=== PATIENT | female | born 1950 | race Two or more races ===

== ENCOUNTER 2023-03-10 20:03 | Inpatient (IN) | payer MEDICARE, MEDICAID, SELFPAY ==
--- NOTE | ~2023-03-10 | CT_ITS ---
EXAMINATION: CT CHEST, ABDOMEN AND PELVIS WITHOUT CONTRAST CT RIGHT SHOULDER WITHOUT CONTRAST CLINICAL INFORMATION: Shortness of breath, cough, febrile, question C. difficile colitis, right shoulder pain with history of osteo COMPARISON: None TECHNIQUE: Multidetector volumetric imaging was performed from the thoracic inlet through the pubic symphysis. Sagittal and coronal reformatted images were obtained on the technologist's workstation. Axial MIP volume rendering provided. Additional dedicated CT imaging of the right shoulder was performed with creation of coronal and sagittal reformatted images. This CT examination was performed using dose optimization techniques as appropriate, variously including the following: *Automated exposure control *Adjustment of mA and/or kV according to patient size (this includes techniques or standardized protocols for targeted exams where dose is matched to indication/reason for exam; i.e. extremities or head) *Use of iterative reconstruction technique DLP: 2184 mGy-cm FINDINGS: CHEST: Lungs: There are multifocal patchy regions of groundglass opacity bilaterally. There is complete atelectasis of the left lower lobe due to adjacent pleural effusion. Dependent atelectasis is present in the right lower lobe. Mediastinum: Visualized thyroid gland is grossly unremarkable. No appreciable mediastinal adenopathy on this noncontrast exam. Cardiac size is within normal limits; no pericardial effusion. Right IJ catheter tip lies in the region of the right atrium. Coronary Artery Calcification: None visualized on this study. Pleura: Moderate left and exgcu-xs-zaxmqkah right pleural effusions. No pneumothorax. Chest Wall/Axilla: Unremarkable. ABDOMEN/PELVIS: Liver, Gallbladder, Biliary Tree: The liver has a nodular contour suspicious for cirrhosis. No appreciable focal hepatic lesion or ductal dilatation on this noncontrast exam. Gallbladder is not visualized. Pancreas: Grossly unremarkable. Spleen: Borderline enlarged. Adrenal Glands: Grossly unremarkable. Kidneys and Ureters: No hydronephrosis or obstructing calculus identified. Bladder: Collapsed and not adequately evaluated. Gastrointestinal Tract: No evidence of bowel obstruction. No significant bowel wall thickening is seen. Small amount of free fluid is present. No free air is seen. Abdominal Wall: Anasarca is noted. Lymphovascular Structures: There are lobulated densities in the left upper quadrant which could reflect dilated vessels, though assessment is limited on this noncontrast examination, and the possibility of adenopathy or masses is difficult to exclude. Diffuse stranding noted throughout the mesentery. Pelvic Viscera: Patient appears to be status post hysterectomy. OSSEOUS STRUCTURES INCLUDING RIGHT SHOULDER: Degenerative changes are noted in the spine. Bilateral L5 pars defects are noted. The glenohumeral alignment at the right shoulder is anatomic. The acromioclavicular joint appears intact with moderate degenerative change. No findings to suggest osteomyelitis. CT/CT abdomen pelvis wo IV con IMPRESSION: CHEST: 1. Multifocal patchy regions of groundglass opacity bilaterally, suspicious for pneumonia in the proper clinical setting. 2. Moderate left and lcifz-cx-iprydwds right pleural effusions. Complete compressive atelectasis of the left lower lobe. 3. No acute findings identified in the right shoulder. Degenerative change of the acromioclavicular joint. ABDOMEN/PELVIS: 1. Nodular hepatic contour suspicious for cirrhosis. Borderline enlarged spleen. 2. Lobulated densities in the left upper quadrant could reflect dilated vessels/varices in the setting of portal hypertension, though assessment is limited on this noncontrast exam and the possibility of masses is difficult to exclude. A contrast-enhanced CT would be helpful for better evaluation. 3. Small amount of free fluid along with mesenteric stranding/edema. Anasarca. 4. No convincing evidence for colitis.
--- NOTE | ~2023-03-10 | CT_ITS ---
EXAMINATION: CT CHEST, ABDOMEN AND PELVIS WITHOUT CONTRAST CT RIGHT SHOULDER WITHOUT CONTRAST CLINICAL INFORMATION: Shortness of breath, cough, febrile, question C. difficile colitis, right shoulder pain with history of osteo COMPARISON: None TECHNIQUE: Multidetector volumetric imaging was performed from the thoracic inlet through the pubic symphysis. Sagittal and coronal reformatted images were obtained on the technologist's workstation. Axial MIP volume rendering provided. Additional dedicated CT imaging of the right shoulder was performed with creation of coronal and sagittal reformatted images. This CT examination was performed using dose optimization techniques as appropriate, variously including the following: *Automated exposure control *Adjustment of mA and/or kV according to patient size (this includes techniques or standardized protocols for targeted exams where dose is matched to indication/reason for exam; i.e. extremities or head) *Use of iterative reconstruction technique DLP: 2184 mGy-cm FINDINGS: CHEST: Lungs: There are multifocal patchy regions of groundglass opacity bilaterally. There is complete atelectasis of the left lower lobe due to adjacent pleural effusion. Dependent atelectasis is present in the right lower lobe. Mediastinum: Visualized thyroid gland is grossly unremarkable. No appreciable mediastinal adenopathy on this noncontrast exam. Cardiac size is within normal limits; no pericardial effusion. Right IJ catheter tip lies in the region of the right atrium. Coronary Artery Calcification: None visualized on this study. Pleura: Moderate left and wmnwb-zs-krvxmxfp right pleural effusions. No pneumothorax. Chest Wall/Axilla: Unremarkable. ABDOMEN/PELVIS: Liver, Gallbladder, Biliary Tree: The liver has a nodular contour suspicious for cirrhosis. No appreciable focal hepatic lesion or ductal dilatation on this noncontrast exam. Gallbladder is not visualized. Pancreas: Grossly unremarkable. Spleen: Borderline enlarged. Adrenal Glands: Grossly unremarkable. Kidneys and Ureters: No hydronephrosis or obstructing calculus identified. Bladder: Collapsed and not adequately evaluated. Gastrointestinal Tract: No evidence of bowel obstruction. No significant bowel wall thickening is seen. Small amount of free fluid is present. No free air is seen. Abdominal Wall: Anasarca is noted. Lymphovascular Structures: There are lobulated densities in the left upper quadrant which could reflect dilated vessels, though assessment is limited on this noncontrast examination, and the possibility of adenopathy or masses is difficult to exclude. Diffuse stranding noted throughout the mesentery. Pelvic Viscera: Patient appears to be status post hysterectomy. OSSEOUS STRUCTURES INCLUDING RIGHT SHOULDER: Degenerative changes are noted in the spine. Bilateral L5 pars defects are noted. The glenohumeral alignment at the right shoulder is anatomic. The acromioclavicular joint appears intact with moderate degenerative change. No findings to suggest osteomyelitis. CT/CT chest wo IV con IMPRESSION: CHEST: 1. Multifocal patchy regions of groundglass opacity bilaterally, suspicious for pneumonia in the proper clinical setting. 2. Moderate left and rxirq-ju-ytoawwff right pleural effusions. Complete compressive atelectasis of the left lower lobe. 3. No acute findings identified in the right shoulder. Degenerative change of the acromioclavicular joint. ABDOMEN/PELVIS: 1. Nodular hepatic contour suspicious for cirrhosis. Borderline enlarged spleen. 2. Lobulated densities in the left upper quadrant could reflect dilated vessels/varices in the setting of portal hypertension, though assessment is limited on this noncontrast exam and the possibility of masses is difficult to exclude. A contrast-enhanced CT would be helpful for better evaluation. 3. Small amount of free fluid along with mesenteric stranding/edema. Anasarca. 4. No convincing evidence for colitis.
--- NOTE | ~2023-03-10 | CT_ITS ---
EXAMINATION: CT CHEST, ABDOMEN AND PELVIS WITHOUT CONTRAST CT RIGHT SHOULDER WITHOUT CONTRAST CLINICAL INFORMATION: Shortness of breath, cough, febrile, question C. difficile colitis, right shoulder pain with history of osteo COMPARISON: None TECHNIQUE: Multidetector volumetric imaging was performed from the thoracic inlet through the pubic symphysis. Sagittal and coronal reformatted images were obtained on the technologist's workstation. Axial MIP volume rendering provided. Additional dedicated CT imaging of the right shoulder was performed with creation of coronal and sagittal reformatted images. This CT examination was performed using dose optimization techniques as appropriate, variously including the following: *Automated exposure control *Adjustment of mA and/or kV according to patient size (this includes techniques or standardized protocols for targeted exams where dose is matched to indication/reason for exam; i.e. extremities or head) *Use of iterative reconstruction technique DLP: 2184 mGy-cm FINDINGS: CHEST: Lungs: There are multifocal patchy regions of groundglass opacity bilaterally. There is complete atelectasis of the left lower lobe due to adjacent pleural effusion. Dependent atelectasis is present in the right lower lobe. Mediastinum: Visualized thyroid gland is grossly unremarkable. No appreciable mediastinal adenopathy on this noncontrast exam. Cardiac size is within normal limits; no pericardial effusion. Right IJ catheter tip lies in the region of the right atrium. Coronary Artery Calcification: None visualized on this study. Pleura: Moderate left and iscmo-uy-qmvhvixm right pleural effusions. No pneumothorax. Chest Wall/Axilla: Unremarkable. ABDOMEN/PELVIS: Liver, Gallbladder, Biliary Tree: The liver has a nodular contour suspicious for cirrhosis. No appreciable focal hepatic lesion or ductal dilatation on this noncontrast exam. Gallbladder is not visualized. Pancreas: Grossly unremarkable. Spleen: Borderline enlarged. Adrenal Glands: Grossly unremarkable. Kidneys and Ureters: No hydronephrosis or obstructing calculus identified. Bladder: Collapsed and not adequately evaluated. Gastrointestinal Tract: No evidence of bowel obstruction. No significant bowel wall thickening is seen. Small amount of free fluid is present. No free air is seen. Abdominal Wall: Anasarca is noted. Lymphovascular Structures: There are lobulated densities in the left upper quadrant which could reflect dilated vessels, though assessment is limited on this noncontrast examination, and the possibility of adenopathy or masses is difficult to exclude. Diffuse stranding noted throughout the mesentery. Pelvic Viscera: Patient appears to be status post hysterectomy. OSSEOUS STRUCTURES INCLUDING RIGHT SHOULDER: Degenerative changes are noted in the spine. Bilateral L5 pars defects are noted. The glenohumeral alignment at the right shoulder is anatomic. The acromioclavicular joint appears intact with moderate degenerative change. No findings to suggest osteomyelitis. CT/CT shoulder RT wo IV con IMPRESSION: CHEST: 1. Multifocal patchy regions of groundglass opacity bilaterally, suspicious for pneumonia in the proper clinical setting. 2. Moderate left and kgrcu-yp-pffheujj right pleural effusions. Complete compressive atelectasis of the left lower lobe. 3. No acute findings identified in the right shoulder. Degenerative change of the acromioclavicular joint. ABDOMEN/PELVIS: 1. Nodular hepatic contour suspicious for cirrhosis. Borderline enlarged spleen. 2. Lobulated densities in the left upper quadrant could reflect dilated vessels/varices in the setting of portal hypertension, though assessment is limited on this noncontrast exam and the possibility of masses is difficult to exclude. A contrast-enhanced CT would be helpful for better evaluation. 3. Small amount of free fluid along with mesenteric stranding/edema. Anasarca. 4. No convincing evidence for colitis.
[2023-03-10 20:07] VITALS: BP 142/68; PULSE 92; O2SAT 92
[2023-03-10 20:13] VITALS: BP 98/42; PULSE 85; RESP 14; TEMP 36.7; O2SAT 97; BMI 31.5
[2023-03-10 20:52] LABS: Basophils Absolute Auto 0.1 X10*3/uL (0.0-0.2); Basophils Percent Auto 0.6 % (0-2); Imm Gran Abs Auto 0.03 X10*3/uL (0.00-0.03); Imm Gran Pct Auto 0.3 % (0.0-0.4); MANUAL DIFF FLAG SCAN; PLT CLUMP 1; Red Blood Count 2.44 X10*6/uL (4.20-5.50); SCAN SMEAR FLAG 1
[2023-03-10] MEDS: 0.9 % Sodium Chloride 1,000 ML 999 ML IV (20:53)
[2023-03-10 20:54] LABS: Eosinophils Absolute Auto 0.2 X10*3/uL (0.0-0.4); Eosinophils Percent Auto 1.9 % (0-4); Hematocrit 26.2 % (37.0-47.0); Hemoglobin 8.7 g/dl (12.0-16.0); Lymphocytes Absolute Auto 1.3 X10*3/uL (1.2-4.9); Lymphocytes Percent Auto 15.4 % (20-40); Mean Corpuscular HGB Conc 33.2 g/dl (31.0-35.0); Mean Corpuscular Hemoglobin 35.7 pg (27.0-33.0); Mean Corpuscular Volume 107.4 fL (80.0-98.0); Mean Platelet Volume 12.8 fL (9.4-12.3); Monocytes Absolute Auto 0.7 X10*3/uL (0.1-1.2); Monocytes Percent Auto 7.8 % (2-11); Neutrophils Absolute Auto 6.4 x10*3/uL (2.0-8.3); Red Cell Distribution Width 15.3 % (11.0-16.0)
[2023-03-10 20:56] LABS: PLT ABN DIST 1
[2023-03-10 20:59] LABS: Platelet Count 17 X10*3/uL (160-400)
[2023-03-10 21:00] LABS: Lactic Acid 1.5 mmol/L (0.5-2.0)
[2023-03-10 21:04] LABS: INTERNATIONAL NORM RATIO 1.8 (0.9-1.1); Prothrombin Time 21.4 SEC (11.1-13.3)
[2023-03-10 21:05] LABS: Alanine Aminotransferase 5 U/L (0-31); Albumin Level 2.1 g/dL (3.5-5.0); Alkaline Phosphatase 335 U/L (39-117); Anion Gap 9 (12-20); Aspartate Amino Transferase 72 U/L (5-31); Bilirubin Total 3.6 mg/dL (0.0-1.0); Blood Urea Nitrogen 14 mg/dL (9-16); Calcium 8.4 mg/dL (8.4-10.2); Carbon Dioxide 30 mmol/L (22-29); Chloride 100 mmol/L (96-108); Creatinine Clr Calc Pharmacy 20.1; Estimated Glomerular Filt Rate 18; Glucose Random 101 mg/dL (60-115); Sodium 135 mmol/L (135-145); Total Protein 5.7 g/dL (6.5-8.0)
[2023-03-10 21:15] LABS: SLIDE REVIEW VERIFIED
--- NOTE | 2023-03-10 21:32 | PC.NURSE ---
Pt DAJUAN, from [facility], staff reporting fever of 100.6, given tylenol [employer]IST. AOx3,Pt reports no pain, denies SOB only with exertion a few days ago. Per EMS, she is C-diff positive. Pt reports no BM since yesterday. IV line placed bloodwork collected and sent to lab. Pt afebrile, 3+ pitting edema to BLE, has a dialysis cath noted to right upper chest, pt reports last dialysis yesterday.
[2023-03-10 21:39] LABS: B Type Natriuretic Peptide 560 pg/mL (<100)
--- NOTE | 2023-03-10 21:46 | ED.GENADULT ---
HPI - General Adult General Chief complaint: General Medical Stated complaint: Fever x1hr Time Seen by Provider: 03/10/23 20:29 Source: patient, EMS and watch electrician Mode of arrival: EMS History of Present Illness HPI narrative: 72-year-old female was brought in to this emergency room from [facility] who had concerns regarding a reported fever of 100.6 for which they gave Tylenol and patient arrives here afebrile. Patient denies fevers or chills and states that her abdomen has not bothered her for a few days, last bowel movement was last night and she has recently been C diff positive. Related Data Allergies Allergy/AdvReac Type Severity Reaction Status Date / Time Unable to Assess Allergy Verified 03/10/23 20:37 Review of Systems Review of Systems: Pertinent positives and negatives as stated in HPI [facility] Past Medical History Source: nursing notes reviewed Social History Social History Alcohol intake: never Smoked in Last 30 Days: No Use of substances other than those prescribed or required for medical reasons: No Advance Directives: No Advance Directives Information Provided: Yes Physical Exam ED Vital Signs: Vital Signs - 24 hr 03/10/23 20:13 03/10/23 22:30 Temperature 98.1 F 98.9 F Pulse Rate 85 74 Respiratory Rate 14 20 Blood Pressure 98/42 L 122/57 L Pulse Oximetry 97 98 Oxygen Delivery Method Room Air Room Air BMI result Body Mass Index 31.5 VITAL SIGNS: Reviewed. GENERAL: Chronically ill, in no acute distress. HEAD: Normocephalic/atraumatic EYES: PERRLA, EOMI EARS: Ext canals without abnormality NOSE: Nares patent bilateral OROPHARYNX: no oral lesions noted, posterior pharynx clear NECK: Supple, no adenopathy LUNGS: Normal breath sounds. No adventitious sounds or accessory muscle use. SpO2<98>; CHEST WALL: Dialysis catheter to right anterior chest CARDIOVASCULAR: Regular rate and rhythm without noted murmurs, no JVD but bilateral pitting edema ABDOMEN: Soft, non-tender, non-distended with bowel sounds. MUSCULOSKELETAL: No tenderness, deformities, or effusions noted on gross inspection. EXTREMITIES: No cyanosis, clubbing or edema. SKIN: Inspection of the skin reveals no rashes, multiple areas of ecchymosis NEUROLOGIC: Alert and oriented x 3. Strength and sensation to light touch were grossly intact x 4. Medications Administered Discontinued Medications Generic Name Dose Route Start Last Admin Trade Name Freq PRN Reason Stop Dose Admin Sodium Chloride 1,000 mls @ 999 mls/hr 03/10/23 20:45 03/10/23 22:31 Ns IV 03/10/23 21:45 Infused .Q1H1M BRYANNA Infusion Medical Decision Making Medical Decision Making [facility] Narrative: 2144: 72-year-old female with history and clinical presentation; DDX: C diff, viral illness, UTI, pneumonia. 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 Her blood pressures are soft, 350 cc of normal saline were provided. I do feel that in general patient is likely anasarca at baseline as she is not hypoxic nor is she tachypneic. I reviewed all investigations and although patient does not have leukocytosis there is a left shift and facility reported a temperature of 100.6 degrees. Patient's anemia is chronically stable and macrocytic, I do note the platelet count of 17 and patient is not currently actively bleeding although she does have scattered ecchymotic areas on her body. Type and screen was completed. Coagulation studies are consistent with patient's liver cirrhosis history with an INR of 1.8 and PT-21.4. Chemistry and sees do not demonstrate any significant electrolyte derangements, renal function is significantly improved although still remains deranged when compared to prior laboratory studies and patient did have dialysis yesterday. Liver values such as total bilirubin are chronically stable AST elevation is chronically stable an ALT is within normal limits. The BNP is noted to be 560 but again patient is not hypoxic and does not appear tachypneic although she does have evidence of anasarca due to the soft blood pressure will defer to inpatient hospitalist for diuresis. Urinalysis is significant for urinary tract infection and there is hematuria as well. CT of the chest shows multifocal patchy areas of ground-glass opacity consistent with a pneumonia in appearance/abdomen pelvis without acute processes identified and shoulder CT without acute findings otherwise my interpretation is in agreement with radiology's impression. 2462: I discussed the case with inpatient hospitalist who accepts admission. Differential Diagnosis Differential Diagnoses: The differential diagnosis associated with the presentation includes Please see the discussion above Admission/Observation Consideration of admission/observation: Escalation of care including admission/observation considered Please see the discussion above Consult Healthcare Provider Management of the patient was discussed with: Hospitalist Please see the discussion above Lab Data MDM Lab Attestation statement: I reviewed the patient's lab results. Please see the discussion above 03/10/23 20:45 03/10/23 20:45 Labs: Lab Results 03/10/23 03/10/23 03/10/23 Range/Units 20:45 20:45 20:45 WBC 8.6 (4.8-10.8) X10*3/uL RBC 2.44 L (4.20-5.50) X10*6/uL Hgb 8.7 L (12.0-16.0) g/dl Hct 26.2 L (37.0-47.0) % MCV 107.4 H (80.0-98.0) fL MCH 35.7 H (27.0-33.0) pg MCHC 33.2 (31.0-35.0) g/dl RDW 15.3 (11.0-16.0) % Plt Count 17 L* D (160-400) X10*3/uL MPV 12.8 H (9.4-12.3) fL Immature Gran % (Auto) 0.3 (0.0-0.4) % Neut % (Auto) 74.0 H (45-73) % Lymph % (Auto) 15.4 L (20-40) % [place]cher % (Auto) 7.8 (2-11) % Eos % (Auto) 1.9 (0-4) % Baso % (Auto) 0.6 (0-2) % Lymph # (Auto) 1.3 (1.2-4.9) X10*3/uL Letcher # (Auto) 0.7 (0.1-1.2) X10*3/uL Eos # (Auto) 0.2 (0.0-0.4) X10*3/uL Baso # (Auto) 0.1 (0.0-0.2) X10*3/uL Abs Immat Gran (auto) 0.03 (0.00-0.03) X10*3/uL Absolute Neuts (auto) 6.4 (2.0-8.3) x10*3/uL Absolute Nucleated RBC 0.000 (0.0-0.012) X10*3/uL Nucleated RBC % (auto) 0.0 (0.0-0.2) /100WBC Smear Tech's Comments VERIFIED PT 21.4 H (11.1-13.3) SEC INR 1.8 H (0.9-1.1) Sodium 135 (135-145) mmol/L Potassium 4.0 (3.3-5.1) mmol/L Chloride 100 (96-108) mmol/L Carbon Dioxide 30 H (22-29) mmol/L Anion Gap 9 L (12-20) BUN 14 (9-16) mg/dL Creatinine 2.55 H (0.5-1.4) mg/dL Estim Creat Clear Calc 20.1 Estimated GFR 18 Random Glucose 101 (60-115) mg/dL Lactic Acid (0.5-2.0) mmol/L Calcium 8.4 (8.4-10.2) mg/dL Total Bilirubin 3.6 H (0.0-1.0) mg/dL AST 72 H (5-31) U/L ALT 5 (0-31) U/L Alkaline Phosphatase 335 H (39-117) U/L B-Natriuretic Peptide (<100) pg/mL Total Protein 5.7 L (6.5-8.0) g/dL Albumin 2.1 L (3.5-5.0) g/dL Urine Color Urine Appearance Urine pH (5.0-9.0) Ur Specific [place] (1.005-1.025) Urine Protein (Neg-Trace) mg/dL Urine Glucose (UA) (Negative) mg/dL Urine Ketones (Negative) mg/dL Urine Blood (Negative) Urine Nitrite (Negative) Ur Leukocyte Esterase (Negative) Blood Type Antibody Screen 03/10/23 03/10/23 03/10/23 Range/Units 20:45 20:45 22:41 WBC (4.8-10.8) X10*3/uL RBC (4.20-5.50) X10*6/uL Hgb (12.0-16.0) g/dl Hct (37.0-47.0) % MCV (80.0-98.0) fL MCH (27.0-33.0) pg MCHC (31.0-35.0) g/dl RDW (11.0-16.0) % Plt Count (160-400) X10*3/uL MPV (9.4-12.3) fL Immature Gran % (Auto) (0.0-0.4) % Neut % (Auto) (45-73) % Lymph % (Auto) (20-40) % Letcher % (Auto) (2-11) % Eos % (Auto) (0-4) % Baso % (Auto) (0-2) % Lymph # (Auto) (1.2-4.9) X10*3/uL Letcher # (Auto) (0.1-1.2) X10*3/uL Eos # (Auto) (0.0-0.4) X10*3/uL Baso # (Auto) (0.0-0.2) X10*3/uL Abs Immat Gran (auto) (0.00-0.03) X10*3/uL Absolute Neuts (auto) (2.0-8.3) x10*3/uL Absolute Nucleated RBC (0.0-0.012) X10*3/uL Nucleated RBC % (auto) (0.0-0.2) /100WBC Smear Tech's Comments PT (11.1-13.3) SEC INR (0.9-1.1) Sodium (135-145) mmol/L Potassium (3.3-5.1) mmol/L Chloride (96-108) mmol/L Carbon Dioxide (22-29) mmol/L Anion Gap (12-20) BUN (9-16) mg/dL Creatinine (0.5-1.4) mg/dL Estim Creat Clear Calc Estimated GFR Random Glucose (60-115) mg/dL Lactic Acid 1.5 (0.5-2.0) mmol/L Calcium (8.4-10.2) mg/dL Total Bilirubin (0.0-1.0) mg/dL AST (5-31) U/L ALT (0-31) U/L Alkaline Phosphatase (39-117) U/L B-Natriuretic Peptide 560 H (<100) pg/mL Total Protein (6.5-8.0) g/dL Albumin (3.5-5.0) g/dL Urine Color Urine Appearance Urine pH (5.0-9.0) Ur Specific [place] (1.005-1.025) Urine Protein (Neg-Trace) mg/dL Urine Glucose (UA) (Negative) mg/dL Urine Ketones (Negative) mg/dL Urine Blood (Negative) Urine Nitrite (Negative) Ur Leukocyte Esterase (Negative) Blood Type AB Positive Antibody Screen NEGATIVE 03/10/23 Range/Units 23:24 WBC (4.8-10.8) X10*3/uL RBC (4.20-5.50) X10*6/uL Hgb (12.0-16.0) g/dl Hct (37.0-47.0) % MCV (80.0-98.0) fL MCH (27.0-33.0) pg MCHC (31.0-35.0) g/dl RDW (11.0-16.0) % Plt Count (160-400) X10*3/uL MPV (9.4-12.3) fL Immature Gran % (Auto) (0.0-0.4) % Neut % (Auto) (45-73) % Lymph % (Auto) (20-40) % Letcher % (Auto) (2-11) % Eos % (Auto) (0-4) % Baso % (Auto) (0-2) % Lymph # (Auto) (1.2-4.9) X10*3/uL Letcher # (Auto) (0.1-1.2) X10*3/uL Eos # (Auto) (0.0-0.4) X10*3/uL Baso # (Auto) (0.0-0.2) X10*3/uL Abs Immat Gran (auto) (0.00-0.03) X10*3/uL Absolute Neuts (auto) (2.0-8.3) x10*3/uL Absolute Nucleated RBC (0.0-0.012) X10*3/uL Nucleated RBC % (auto) (0.0-0.2) /100WBC Smear Tech's Comments PT (11.1-13.3) SEC INR (0.9-1.1) Sodium (135-145) mmol/L Potassium (3.3-5.1) mmol/L Chloride (96-108) mmol/L Carbon Dioxide (22-29) mmol/L Anion Gap (12-20) BUN (9-16) mg/dL Creatinine (0.5-1.4) mg/dL Estim Creat Clear Calc Estimated GFR Random Glucose (60-115) mg/dL Lactic Acid (0.5-2.0) mmol/L Calcium (8.4-10.2) mg/dL Total Bilirubin (0.0-1.0) mg/dL AST (5-31) U/L ALT (0-31) U/L Alkaline Phosphatase (39-117) U/L B-Natriuretic Peptide (<100) pg/mL Total Protein (6.5-8.0) g/dL Albumin (3.5-5.0) g/dL Urine Color Dark Yellow Urine Appearance Turbid Urine pH 5.5 (5.0-9.0) Ur Specific [place] 1.020 (1.005-1.025) Urine Protein 100 (2+) H (Neg-Trace) mg/dL Urine Glucose (UA) 100 H (Negative) mg/dL Urine Ketones Trace (Negative) mg/dL Urine Blood Trace H (Negative) Urine Nitrite Positive H (Negative) Ur Leukocyte Esterase Large (3+) H (Negative) Blood Type Antibody Screen Radiology Impression Discussion of test interpretation with radiology: I have reviewed the radiologist's reading. Radiologist Impression: Please see the discussion above External Record Review External record reviewed: Outpatient record, Prior outpatient labs and Prior outpatient radiology Chronic Conditions Patient?s care impacted by: Diabetes and Hypertension Critical Care Time Critical Care Time Critical Care Time: Yes Total Critical Care Time: 30 Attestation: I personally attest to this time spent taking care of the patient. Discharge Plan Discharge Clinical Impression: Sepsis, Pneumonia, Acute UTI, Elevated brain natriuretic peptide (BNP) level Patient Disposition: Admitted As Inpatient
[2023-03-10 21:49] LABS: White Blood Count 8.6 X10*3/uL (4.8-10.8)
[2023-03-10 22:30] VITALS: BP 122/57; PULSE 74; RESP 20; TEMP 37.2; O2SAT 98
--- NOTE | 2023-03-10 22:33 | PC.NURSE ---
IV Fluids stopped at this time per provider, total amount pt recieved 350mls.
--- NOTE | 2023-03-10 22:42 | MHC.EDTECH ---
2200 rounding and vitals sign done ,pt was reposition and boosted up in bed ,type and screen drawn and se3nt to lab ,pt resting quietly in bed .
[2023-03-10 23:30] LABS: Appearance Urine Turbid; Color Urine Dark Yellow; Glucose Urine UA 100 mg/dL (Negative); Leukocyte Esterase Urine Large (3+) (Negative); Nitrite Urine Positive (Negative); PH 5.5 (5.0-9.0); UMIC TRIGGER UACC YES; Urine Blood Trace (Negative); Urine Ketones Trace mg/dL (Negative); Urine Protein 100 (2+) mg/dL (Neg-Trace)
--- NOTE | 2023-03-10 23:38 | PC.NURSE ---
Pt able to urinate/BM in bedpan, per sample collection. Samples sent to lab.
[2023-03-10 23:42] LABS: Bacteria Urine Trace (None Seen); RBC Urine >20 /HPF (0-2); Squamous Epithelial Cell Urine >20 /HPF (0-2); UACC Culture Trigger YES; WBC Urine >50 /HPF (0-5)
[2023-03-11] VITALS (8 sets, daily range): BP systolic 100–132; BP diastolic 58–67; PULSE 57–97; RESP 15–20; TEMP 36.3–36.9; O2SAT 95–98
--- NOTE | 2023-03-11 | PC.NURSE ---
Right sided flank/right upper thigh bruising noted. Pt states she is aware. Pt cleaned and repositioned.
[2023-03-11] MEDS: Heparin Sodium,Porcine 5,000 UNIT/ML VIAL 5000 UNIT SUBCUT (00:16)
[2023-03-11] MEDS: cefTRIAXone sodium 2 GM in 0.9 % Sodium Chloride 50 ML IV (00:16)
[2023-03-11] MEDS: 0.9 % Sodium Chloride Flush 3 ML SYRINGE IVFLUSH ×3 (00:20→23:34)
--- NOTE | 2023-03-11 00:23 | P.HPHOSP_ITS ---
History of Present Illness Date of Service: 03/11/23 Chief Complaint: Fever This is a 72-year-old female with pertinent history of ESRD on dialysis, gastroesophageal reflux disease, cirrhosis who was brought to the emergency department for fever and cough. Patient is a poor historian and unable to provide any history. She does not know why she is here. History obtained from ER provider and chart review. At nursing facility fever was reported of 100.6 and patient was given Tylenol and sent to the ER. Patient states she has been coughing over the last few days. The cough worsens every time she eats or dr inks. Unable to obtain review of systems. No complaints at the time of admission. Patient was noted to be hypotensive with blood pressure in the 90s upon arrival which improved with IV fluids. Review of Systems Review of Systems: Yes Unobtainable due to mental status [facility] Medical History (Updated 03/11/23 @ 02:05 by Tamika Arriaza MD) Cirrhosis ESRD (end stage renal disease) GERD (gastroesophageal reflux disease) Pertinent family history: Unable to obtain Social History Alcohol intake: never Smoked in Last 30 Days: No Use of substances other than those prescribed or required for medical reasons: No Advance Directives: No Advance Directives Information Provided: Yes Meds Allergies Allergy/AdvReac Type Severity Reaction Status Date / Time Unable to Assess Allergy Verified 03/10/23 20:37 Active Medications: Current Medications Acetaminophen (Acetaminophen 325 Mg Tablet) 650 mg PO Q6H PRN PRN Reason: Pain, Mild (Pain Scale 1-3) Acetaminophen (Acetaminophen Supp 650 Mg Supp.Rect) 650 mg SC Q6H PRN PRN Reason: Pain, Mild (Pain Scale 1-3) Heparin Sodium (Porcine) (Heparin Sodium,Porcine 5,000 Unit/Ml Vial) 5,000 unit SUBCUT Q12H [facility] Last Admin: 03/11/23 00:16 Dose: 5,000 unit Melatonin (Melatonin 3 Mg Tablet) 6 mg PO BEDTIME PRN PRN Reason: Insomnia Ondansetron HCl (Ondansetron Hcl 4 Mg/2 Ml Vial) 4 mg IVPUSH Q8H PRN PRN Reason: Nausea and Vomiting Sodium Chloride (0.9 % Sodium Chloride Flush 3 Ml Syringe) 3 ml IVFLUSH QSHIFT [facility] Last Admin: 03/11/23 00:20 Dose: 3 ml Physical Exam Vital Signs and Narrative: Vital Signs: Last Vital Signs Temp 98.9 F 03/10/23 22:30 Pulse 74 03/10/23 22:30 Resp 20 03/10/23 22:30 BP 122/57 L 03/10/23 22:30 Pulse Ox 98 03/10/23 22:30 O2 Del Method Room Air 03/10/23 22:30 BMI result Body Mass Index 31.5 Elderly female lying in bed in no distress Neck supple, no JVD Regular rate and rhythm, S1-S2 heard Bilateral crackles without wheezing Abdomen soft nontender, no guarding, no rigidity Patient is awake, alert and oriented to self, disoriented to place, time and person ; no focal motor deficit Psych: Normal mood Results Labs 03/10/23 20:45 03/10/23 20:45 Labs: Laboratory Results - last 24 hr 03/10/23 03/10/23 03/10/23 20:45 20:45 20:45 MCV 107.4 H MCH 35.7 H MCHC 33.2 RDW 15.3 Plt Count 17 L* D MPV 12.8 H Immature Gran % (Auto) 0.3 Neut % (Auto) 74.0 H Lymph % (Auto) 15.4 L [place] % (Auto) 7.8 Eos % (Auto) 1.9 Baso % (Auto) 0.6 Lymph # (Auto) 1.3 [place] # (Auto) 0.7 Eos # (Auto) 0.2 Baso # (Auto) 0.1 Abs Immat Gran (auto) 0.03 Absolute Neuts (auto) 6.4 Absolute Nucleated RBC 0.000 Nucleated RBC % (auto) 0.0 Smear Tech's Comments VERIFIED PT 21.4 H INR 1.8 H Anion Gap 9 L Estim Creat Clear Calc 20.1 Estimated GFR 18 Random Glucose 101 Lactic Acid Calcium 8.4 Total Bilirubin 3.6 H AST 72 H ALT 5 Alkaline Phosphatase 335 H B-Natriuretic Peptide Total Protein 5.7 L Albumin 2.1 L Urine Color Urine Appearance Urine pH Ur Specific [place] Urine Protein Urine Glucose (UA) Urine Ketones Urine Blood Urine Nitrite Ur Leukocyte Esterase Urine RBC Urine WBC Ur Squamous Epith Cells Urine Bacteria Hyaline Casts Blood Type Antibody Screen 03/10/23 03/10/2303/10/23 20:45 20:45 22:41 MCV MCH MCHC RDW Plt Count MPV Immature Gran % (Auto) Neut % (Auto) Lymph % (Auto) [place] % (Auto) Eos % (Auto) Baso % (Auto) Lymph # (Auto) [place] # (Auto) Eos # (Auto) Baso # (Auto) Abs Immat Gran (auto) Absolute Neuts (auto) Absolute Nucleated RBC Nucleated RBC % (auto) Smear Tech's Comments PT INR Anion Gap Estim Creat Clear Calc Estimated GFR Random Glucose Lactic Acid 1.5 Calcium Total Bilirubin AST ALT Alkaline Phosphatase B-Natriuretic Peptide 560 H Total Protein Albumin Urine Color Urine Appearance Urine pH Ur Specific [place] Urine Protein Urine Glucose (UA) Urine Ketones Urine Blood Urine Nitrite Ur Leukocyte Esterase Urine RBC Urine WBC Ur Squamous Epith Cells Urine Bacteria Hyaline Casts Blood Type AB Positive Antibody Screen NEGATIVE 03/10/23 23:24 MCV MCH MCHC RDW Plt Count MPV Immature Gran % (Auto) Neut % (Auto) Lymph % (Auto) [place] % (Auto) Eos % (Auto) Baso % (Auto) Lymph # (Auto) [place] # (Auto) Eos # (Auto) Baso # (Auto) Abs Immat Gran (auto) Absolute Neuts (auto) Absolute Nucleated RBC Nucleated RBC % (auto) Smear Tech's Comments PT INR Anion Gap Estim Creat Clear Calc Estimated GFR Random Glucose Lactic Acid Calcium Total Bilirubin AST ALT Alkaline Phosphatase B-Natriuretic Peptide Total Protein Albumin Urine Color Dark Yellow Urine Appearance Turbid Urine pH 5.5 Ur Specific [place] 1.020 Urine Protein 100 (2+) H Urine Glucose (UA) 100 H Urine Ketones Trace Urine Blood Trace H Urine Nitrite Positive H Ur Leukocyte Esterase Large (3+) H Urine RBC >20 H Urine WBC >50 H Ur Squamous Epith Cells >20 Urine Bacteria Trace Hyaline Casts 11-20 Blood Type Antibody Screen Imaging Radiologist's Impressions: Impressions Abdomen/Pelvis CT 03/10/23 22:20 IMPRESSION: CHEST: 1. Multifocal patchy regions of groundglass opacity bilaterally, suspicious for pneumonia in the proper clinical setting. 2. Moderate left and [id number] right pleural effusions. Complete compressive atelectasis of the left lower lobe. 3. No acute findings identified in the right shoulder. Degenerative change of the acromioclavicular joint. ABDOMEN/PELVIS: 1. Nodular hepatic contour suspicious for cirrhosis. Borderline enlarged spleen. 2. Lobulated densities in the left upper quadrant could reflect dilated vessels/varices in the setting of portal hypertension, though assessment is limited on this noncontrast exam and the possibility of masses is difficult to exclude. A contrast-enhanced CT would be helpful for better evaluation. 3. Small amount of free fluid along with mesenteric stranding/edema. Anasarca. 4. No convincing evidence for colitis. Chest CT 03/10/23 22:20 IMPRESSION: CHEST: 1. Multifocal patchy regions of groundglass opacity bilaterally, suspicious for pneumonia in the proper clinical setting. 2. Moderate left and [id number] right pleural effusions. Complete compressive atelectasis of the left lower lobe. 3. No acute findings identified in the right shoulder. Degenerative change of the acromioclavicular joint. ABDOMEN/PELVIS: 1. Nodular hepatic contour suspicious for cirrhosis. Borderline enlarged spleen. 2. Lobulated densities in the left upper quadrant could reflect dilated vessels/varices in the setting of portal hypertension, though assessment is limited on this noncontrast exam and the possibility of masses is difficult to exclude. A contrast-enhanced CT would be helpful for better evaluation. 3. Small amount of free fluid along with mesenteric stranding/edema. Anasarca. 4. No convincing evidence for colitis. Shoulder CT 03/10/23 22:20 IMPRESSION: CHEST: 1. Multifocal patchy regions of groundglass opacity bilaterally, suspicious for pneumonia in the proper clinical setting. 2. Moderate left and [id number] right pleural effusions. Complete compressive atelectasis of the left lower lobe. 3. No acute findings identified in the right shoulder. Degenerative change of the acromioclavicular joint. ABDOMEN/PELVIS: 1. Nodular hepatic contour suspicious for cirrhosis. Borderline enlarged spleen. 2. Lobulated densities in the left upper quadrant could reflect dilated vessels/varices in the setting of portal hypertension, though assessment is limited on this noncontrast exam and the possibility of masses is difficult to exclude. A contrast-enhanced CT would be helpful for better evaluation. 3. Small amount of free fluid along with mesenteric stranding/edema. Anasarca. 4. No convincing evidence for colitis. Assessment and Plan (1) Sepsis: Status: Acute Plan This is a 72-year-old female with pertinent history of ESRD on dialysis, gastroesophageal reflux disease, cirrhosis who was brought to the emergency department for fever and cough. #. Sepsis due to pneumonia + UTI. Meets sepsis criteria with fever of 100.6 and tachypnea. Given IV crystalloids in the ER. Lactic acid and blood cultures obtained. Initiated empiric IV antibiotics. Follow urine culture and sputum culture. Concern for aspiration, will keep NPO until seen by speech #. Acute metabolic encephalopathy in the setting of above. Monitor mentation with IV antibiotics. Unclear baseline #. Cirrhosis. Continue lactulose and diuretics. Ammonia pending #. Thrombocytopenia. Likely in the setting of cirrhosis. Ordered platelet transfusion. Continue to monitor. No active bleeding on admission #. ESRD on hemodialysis. Consulted Nephrology #. Macrocytic anemia. Obtaining B12 and folate. Hemoglobin above transfusion threshold Med rec pending DVT prophylaxis: Mechanical. Defer Lovenox in the setting of thrombocytopenia Full code Admit as inpatient and will require two night minimum hospital stay for IV antibiotics Time Spent With Patient Time: Total time managing care of this patient today ____ minutes. Quality Stroke Does the patient have a stroke diagnosis?: No VTE Prior VTE?: No VTE Risk Level:: Medical - moderate - high VTE Device Contraindication: Treatment Not Indicated VTE Drug Contraindication: N/A - Med Ordered
[2023-03-11 00:34] LABS: CDiff Gene PCR NEGATIVE (Negative)
--- NOTE | 2023-03-11 00:43 | MHC.EDTECH ---
PATIENT VITALS SIGN TAKEN AND BELONGING LIST DONE ,PT SLEEPING COMFORTABLE IN BED .
[2023-03-11 02:27] LABS: MANUAL DIFF FLAG NO
[2023-03-11 02:29] LABS: Basophils Absolute Auto 0.1 X10*3/uL (0.0-0.2); Basophils Percent Auto 0.7 % (0-2); Eosinophils Absolute Auto 0.2 X10*3/uL (0.0-0.4); Eosinophils Percent Auto 3.2 % (0-4); Hematocrit 26.9 % (37.0-47.0); Hemoglobin 8.8 g/dl (12.0-16.0); Imm Gran Abs Auto 0.02 X10*3/uL (0.00-0.03); Imm Gran Pct Auto 0.3 % (0.0-0.4); Lymphocytes Absolute Auto 1.5 X10*3/uL (1.2-4.9); Lymphocytes Percent Auto 22.2 % (20-40); Mean Corpuscular HGB Conc 32.7 g/dl (31.0-35.0); Mean Corpuscular Hemoglobin 34.9 pg (27.0-33.0); Mean Corpuscular Volume 106.7 fL (80.0-98.0); Mean Platelet Volume 12.4 fL (9.4-12.3); Monocytes Absolute Auto 0.7 X10*3/uL (0.1-1.2); Monocytes Percent Auto 10.5 % (2-11); Neutrophils Absolute Auto 4.4 x10*3/uL (2.0-8.3); Neutrophils Percent Auto 63.1 % (45-73); Red Blood Count 2.52 X10*6/uL (4.20-5.50); Red Cell Distribution Width 15.6 % (11.0-16.0); White Blood Count 6.9 X10*3/uL (4.8-10.8)
[2023-03-11 02:30] LABS: Platelet Count 23 X10*3/uL (160-400)
[2023-03-11 02:48] LABS: Ammonia 27 umol/L (13-55)
--- NOTE | 2023-03-11 02:54 | MHC.EDTECH ---
0300 rounding done ,vitals sign taken ,pt awake comfortable and is dry ,pt has a bed on med surge ,waiting for nurse to give report .
[2023-03-11 02:55] LABS: Anion Gap 10 (12-20); Blood Urea Nitrogen 16 mg/dL (9-16); Calcium 8.6 mg/dL (8.4-10.2); Carbon Dioxide 29 mmol/L (22-29); Chloride 102 mmol/L (96-108); Creatinine Clr Calc Pharmacy 17.3; Estimated Glomerular Filt Rate 15; Glucose Random 77 mg/dL (60-115); Potassium 4.2 mmol/L (3.3-5.1); Sodium 137 mmol/L (135-145)
[2023-03-11] MEDS: Azithromycin 500 MG in 0.9 % Sodium Chloride 250 ML 125 MG IV (02:57)
--- NOTE | 2023-03-11 03:12 | PC.NURSE ---
RN to RN report given to [facility]o will be transported to [facility] aware of plan.
[2023-03-11 06:52] LABS: Folate 12.9 ng/mL (> or = 4.0); Vitamin B12 1771 pg/mL (200-900)
--- NOTE | 2023-03-11 08:49 | PHA.MEDREC ---
Pharmacy Consult ? Medication Reconciliation Pharmacy has completed the medication reconciliation.
--- NOTE | 2023-03-11 09:01 | P.CONNP_ITS ---
History of Present Illness Reason for Consult Consult date: 03/11/23 Reason for consult: ESRD and management of dialysis needs\ Chief Complaint Chief complaint: Fever History of Present Illness Narrative: Mrs. justin Silver is a 72 yo Bengali speaking only pt admitted with fever and AMS. She has ESRD and dialyzes at the [facility]. Her schedule is apparently T S but need to confirm this. She has a R IJ permcath in place. She is currently at [facility] and they referred her to the ER here for fever to 101.6. She had a previous hospitalization in January at [facility] for apparent osteo of the right clavicle and was on prolonged course of antibiotics and subsequently dev. Cdiff for which she has been treated. Diarrhea is persistent but better. When she presented, her BP was lowish. she had had dialysis on Sunday ( I will confirm). She carries a dx of cirrhosis as well. Review of Systems Review of Systems Pertinent positives and negatives as stated in HPI Yes Unobtainable due to mental status PMFSH Past Medical History Medical History Cirrhosis ESRD (end stage renal disease) GERD (gastroesophageal reflux disease) Family History Pertinent family history: Unable to obtain Social History Social History Household Members: Family Housing: Apartment Do you presently have visiting nurse or other home services: No Alcohol intake: never Patient Tobacco Use Status: Never used Tobacco Second Hand Smoke Exposure: Yes Substance Use Type: Marijuana Meds Allergies Allergy/AdvReac Type Severity Reaction Status Date / Time shellfish derived Allergy Nausea and Verified 03/11/23 03:13 Vomiting Sulfa (Sulfonamide Allergy Hives Verified 03/11/23 03:12 Antibiotics) Active Medications: Current Medications Acetaminophen (Acetaminophen 325 Mg Tablet) 650 mg PO Q6H PRN PRN Reason: Pain, Mild (Pain Scale 1-3) Acetaminophen (Acetaminophen Supp 650 Mg Supp.Rect) 650 mg [place] Q6H PRN PRN Reason: Pain, Mild (Pain Scale 1-3) Ceftriaxone Sodium 1 gm/ (Sodium Chloride) 50 mls @ 100 mls/hr IV Q24H [facility] Azithromycin 500 mg/ Sodium (Chloride) 250 mls @ 125 mls/hr IV Q24H [facility] Last Infusion: 03/11/23 06:37 Dose: Infused Melatonin (Melatonin 3 Mg Tablet) 6 mg PO BEDTIME PRN PRN Reason: Insomnia Ondansetron HCl (Ondansetron Hcl 4 Mg/2 Ml Vial) 4 mg IVPUSH Q8H PRN PRN Reason: Nausea and Vomiting Sodium Chloride (0.9 % Sodium Chloride Flush 3 Ml Syringe) [address] [facility] Last Admin: 03/11/23 08:09 Dose: Not Given Home Medications Medication Instructions Recorded Confirmed Last Taken Type acetaminophen 325 mg tablet 650 mg PO Q8H PRN Pain 03/11/23 03/11/23 Unknown History diclofenac sodium 1 % topical gel 2 g topical TID PRN Pain 03/11/23 03/11/23 Unknown History doxycycline hyclate 100 mg tablet 100 mg PO BID 03/11/23 03/11/23 Unknown Histo ry ergocalciferol (vitamin D2) 1,250 1,250 mcg PO QMONTH 03/11/23 03/11/23 Unknown History mcg (50,000 unit) capsule insulin aspart U-100 100 unit/mL 1 sliding scale dose subcut 03/11/23 03/11/23 Unknown History subcutaneous solution USEASDIRECTD lactulose 10 gram/15 mL (15 mL) 10 g PO TID 03/11/23 03/11/23 Unknown History oral solution lorazepam 1 mg tablet 1 mg PO BID 03/11/23 03/11/23 Unknown History montelukast 10 mg tablet 10 mg PO BEDTIME 03/11/23 03/11/23 Unknown History multivitamin 1 tab PO DAILY 03/11/23 03/11/23 Unknown History nystatin 100,000 unit/gram topical 1 appl topical BID 03/11/23 03/11/23 Unknown History powder ondansetron HCl 4 mg tablet 4 mg PO Q6H PRN Nausea 03/11/23 03/11/23 Unknown History pantoprazole 40 mg tablet,delayed 40 mg PO DAILY 03/11/23 03/11/23 Unknown History release sertraline 50 mg tablet 50 mg PO DAILY 03/11/23 03/11/23 Unknown History thiamine HCl (vitamin B1) 100 mg 100 mg PO DAILY 03/11/23 03/11/23 Unknown History tablet Physical Exam Vital Signs: Last Vital Signs Temp 97.4 F 03/11/23 08:18 Pulse 90 03/11/23 08:18 Resp 18 03/11/23 08:18 BP 123/58 L 03/11/23 08:18 Pulse Ox 95 03/11/23 07:21 O2 Del Method Room Air 03/11/23 07:21 BMI result Body Mass Index 31.5 Const Other: Obese woman in no distress Makes eye contact and affect is appropriate austrian speaking only HEENT Other: PERRLA Neck Other: Supple, no JVD Chest Other: R IJ permcath site clean and dry without erythema or drainage Cannot palpate any collection over clavicle Resp Other: No rales on exam, dullness righ base Cardio Other: No JVD RRR No rub or audible murmur GI Other: Abdomen obese, soft, nontender to palpation, normal sounds and no rebound; ?fluid wave Skin Other: No rash noted Extrem Other: LE edema pretib 1 plus pitting Results Lab Results 03/11/23 02:22 03/11/23 02:22 Lab results: Chemistry 03/10/23 03/11/23 20:45 02:22 Sodium 135 137 Potassium 4.0 4.2 Carbon Dioxide 30 H 29 BUN 14 16 Creatinine 2.55 H 2.96 H Calcium 8.4 8.6 Hematology 03/10/23 03/11/23 20:45 02:22 WBC 8.6 6.9 Hgb 8.7 L 8.8 L Plt Count 17 L* D 23 L D Urinalysis 03/10/23 23:24 Urine Color Dark Yellow Urine Appearance Turbid Urine pH 5.5 Ur Specific [place] 1.020 Urine Protein 100 (2+) H Urine Glucose (UA) 100 H Urine Ketones Trace Urine Blood Trace H Urine Nitrite Positive H Ur Leukocyte Esterase Large (3+) H Urine RBC >20 H Urine WBC >50 H Ur Squamous Epith Cells >20 Hyaline Casts 11-20 Assessment and Plan (1) ESRD (end stage renal disease): Status: Acute HD -will plan for Sunday Access permcath (2) Fever: Status: Acute Though she may have a UTI, most patients with ESRD have sterile pyuria; I would be concerned about possible line sepsis with permcath in place: obtain BCs and cover for s.aureus as well until they return (3) Anemia: Status: Acute Likely multifactorial; would add epogen 10,000 units weekly while here Plan Plan for HD on Sunday Please add retacrit or epogen 10,000 units sc weekly BCs and cover for possible line sepsis Time Spent With Patient Time: Total time managing care of this patient today ____ minutes. Procedures Date of Service Date of Service: 03/11/23
--- NOTE | 2023-03-11 09:50 | P.PNIM_ITS ---
Subjective Subjective Date of Service: 03/11/23 Review of Systems follow-up pneumonia Denies shortness of breath, cough Some mild confusion noted Physical Exam Vital Signs: Vital Signs: Last Vital Signs Temp 97.4 F 03/11/23 08:18 Pulse 90 03/11/23 08:18 Resp 18 03/11/23 08:18 BP 123/58 L 03/11/23 08:18 Pulse Ox 95 03/11/23 07:21 O2 Del Method Room Air 03/11/23 07:21 BMI result Body Mass Index 31.5 Appearing in no acute distress lung sounds are clear to auscultation heart regular rate rhythm, clear S1, S2 positive bowel sounds, abdomen is soft, nontender neuro patient is alert x3, no focal deficits Objective Data Active Medications Acetaminophen (Acetaminophen 325 Mg Tablet) 650 mg PO Q6H PRN PRN Reason: Pain, Mild (Pain Scale 1-3) Acetaminophen (Acetaminophen Supp 650 Mg Supp.Rect) 650 mg [place] Q6H PRN PRN Reason: Pain, Mild (Pain Scale 1-3) Ceftriaxone Sodium 1 gm/ (Sodium Chloride) 50 mls @ 100 mls/hr IV Q24H [facility] Azithromycin 500 mg/ Sodium (Chloride) 250 mls @ 125 mls/hr IV Q24H [facility] Last Infusion: 03/11/23 06:37 Dose: 0 mls/hr Documented By: APRIL Melatonin (Melatonin 3 Mg Tablet) 6 mg PO BEDTIME PRN PRN Reason: Insomnia Ondansetron HCl (Ondansetron Hcl 4 Mg/2 Ml Vial) 4 mg IVPUSH Q8H PRN PRN Reason: Nausea and Vomiting Sodium Chloride (0.9 % Sodium Chloride Flush 3 Ml Syringe) 3 ml IVFLUSH QSHIFT [facility] Last Admin: 03/11/23 08:09 Dose: Not Given Documented By: DEEPALI Non-Admin Reason: IV Running Labs 03/11/23 02:22 03/11/23 02:22 Labs: Laboratory Results - last 24 hr 03/10/23 03/10/23 03/10/23 20:45 20:45 20:45 MCV 107.4 H MCH 35.7 H MCHC 33.2 RDW 15.3 Plt Count 17 L* D MPV 12.8 H Immature Gran % (Auto) 0.3 Neut % (Auto) 74.0 H Lymph % (Auto) 15.4 L [place] % (Auto) 7.8 Eos % (Auto) 1.9 Baso % (Auto) 0.6 Lymph # (Auto) 1.3 [place] # (Auto) 0.7 Eos # (Auto) 0.2 Baso # (Auto) 0.1 Abs Immat Gran (auto) 0.03 Absolute Neuts (auto) 6.4 Absolute Nucleated RBC 0.000 Nucleated RBC % (auto) 0.0 Smear Tech's Comments VERIFIED PT 21.4 H INR 1.8 H Anion Gap 9 L Estim Creat Clear Calc 20.1 Estimated GFR 18 Random Glucose 101 Lactic Acid Calcium 8.4 Total Bilirubin 3.6 H AST 72 H ALT 5 Alkaline Phosphatase 335 H Ammonia B-Natriuretic Peptide Total Protein 5.7 L Albumin 2.1 L Vitamin B12 Folate Urine Color Urine Appearance Urine pH Ur Specific [place] Urine Protein Urine Glucose (UA) Urine Ketones Urine Blood Urine Nitrite Ur Leukocyte Esterase Urine RBC Urine WBC Ur Squamous Epith Cells Urine Bacteria Hyaline Casts C. difficile Tox B Gene Blood Type Antibody Screen 03/10/23 03/10/23 03/10/23 20:45 20:45 22:41 MCV MCH MCHC RDW Plt Count MPV Immature Gran % (Auto) Neut % (Auto) Lymph % (Auto) [place] % (Auto) Eos % (Auto) Baso % (Auto) Lymph # (Auto) [place] # (Auto) Eos # (Auto) Baso # (Auto) Abs Immat Gran (auto) Absolute Neuts (auto) Absolute Nucleated RBC Nucleated RBC % (auto) Smear Tech's Comments PT INR Anion Gap Estim Creat Clear Calc Estimated GFR Random Glucose Lactic Acid 1.5 Calcium Total Bilirubin AST ALT Alkaline Phosphatase Ammonia B-Natriuretic Peptide 560 H Total Protein Albumin Vitamin B12 Folate Urine Color Urine Appearance Urine pH Ur Specific [place] Urine Protein Urine Glucose (UA) Urine Ketones Urine Blood Urine Nitrite Ur Leukocyte Esterase Urine RBC Urine WBC Ur Squamous Epith Cells Urine Bacteria Hyaline Casts C. difficile Tox B Gene Blood Type AB Positive Antibody Screen NEGATIVE 03/10/23 03/10/23 03/11/23 23:24 23:31 02:22 MCV 106.7 H MCH 34.9 H MCHC 32.7 RDW 15.6 Plt Count 23 L D MPV 12.4 H Immature Gran % (Auto) 0.3 Neut % (Auto) 63.1 Lymph % (Auto) 22.2 [place] % (Auto) 10.5 Eos % (Auto) 3.2 Baso % (Auto) 0.7 Lymph # (Auto) 1.5 [place] # (Auto) 0.7 Eos # (Auto) 0.2 Baso # (Auto) 0.1 Abs Immat Gran (auto) 0.02 Absolute Neuts (auto) 4.4 Absolute Nucleated RBC 0.000 Nucleated RBC % (auto) 0.0 Smear Tech's Comments PT INR Anion Gap Estim Creat Clear Calc Estimated GFR Random Glucose Lactic Acid Calcium Total Bilirubin AST ALT Alkaline Phosphatase Ammonia B-Natriuretic Peptide Total Protein Albumin Vitamin B12 Folate Urine Color Dark Yellow Urine Appearance Turbid Urine pH 5.5 Ur Specific [place] 1.020 Urine Protein 100 (2+) H Urine Glucose (UA) 100 H Urine Ketones Trace Urine Blood Trace H Urine Nitrite Positive H Ur Leukocyte Esterase Large (3+) H Urine RBC >20 H Urine WBC >50 H Ur Squamous Epith Cells >20 Urine Bacteria Trace Hyaline Casts 11-20 C. difficile Tox B Gene NEGATIVE Blood Type Antibody Screen 03/11/23 03/11/23 03/11/23 02:22 02:22 05:18 MCV MCH MCHC RDW Plt Count MPV Immature Gran % (Auto) Neut % (Auto) Lymph % (Auto) [place] % (Auto) Eos % (Auto) Baso % (Auto) Lymph # (Auto) [place] # (Auto) Eos # (Auto) Baso # (Auto) Abs Immat Gran (auto) Absolute Neuts (auto) Absolute Nucleated RBC Nucleated RBC % (auto) Smear Tech's Comments PT INR Anion Gap 10 L Estim Creat Clear Calc 17.3 Estimated GFR 15 Random Glucose 77 Lactic Acid Calcium 8.6 Total Bilirubin AST ALT Alkaline Phosphatase Ammonia 27 B-Natriuretic Peptide Total Protein Albumin Vitamin B12 1771 H Folate 12.9 Urine Color Urine Appearance Urine pH Ur Specific [place] Urine Protein Urine Glucose (UA) Urine Ketones Urine Blood Urine Nitrite Ur Leukocyte Esterase Urine RBC Urine WBC Ur Squamous Epith Cells Urine Bacteria Hyaline Casts C. difficile Tox B Gene Blood Type Antibody Screen Assessment and Plan (1) Fever: Status: Acute Plan This is a 72-year-old female with pertinent history of ESRD on dialysis, gastroesophageal reflux disease, cirrhosis who was brought to the emergency department for fever and cough. Sepsis secondary to pneumonia + UTI.? Met sepsis criteria with fever of 100.6 and tachypnea, normal lactic acid Given IV crystalloids in the ER.? blood cultures pending will treat with Rocephin and vancomycin due to concern for line sepsis as patient has a PermCath Community-acquired pneumonia versus aspiration Will treat with Rocephin and vancomycin Patient passed nursing bedside evaluation Continue supplemental oxygen as needed Follow-up final cultures UTI Continue Rocephin Follow urine culture Acute metabolic encephalopathy in the setting of above.? Monitor mentation with IV antibiotics.? Cirrhosis.? Continue lactulose and diuretics.? normal ammonia GI consultation for abnormal abdominal CT Thrombocytopenia.? Likely in the setting of cirrhosis.? s/ p platelet transfusion.? Continue to monitor.? No active bleeding on admission ESRD on hemodialysis.? seen evaluated by Nephrology>rec treating for Staph aureus due to concern of P ermCath line sepsis epo 15036 units weekly starting today Macrocytic anemia.? Obtaining B12 and folate.? Hemoglobin above transfusion threshold DVT prophylaxis:? Mechanical.? Defer Lovenox in the setting of thrombocytopenia Attending Dr. Zaragoza Full code Continue hospitalization for treatment of pneumonia requiring IV antibiotics and urinary tract infection Time Spent With Patient Time: Total time managing care of this patient today ____ minutes. Quality Stroke Does the patient have a stroke diagnosis?: No VTE Prior VTE?: No VTE Risk Level:: Medical - moderate - high VTE Device Contraindication: Treatment Not Indicated VTE Drug Contraindication: N/A - Med Ordered
[2023-03-11 10:08] LABS: Campylobacter Not Detected (Not Detect.); Plesiomonas shigelloides Not Detected (Not Detect.); Salmonella Not Detected (Not Detect.); Vibrio Not Detected (Not Detect.); Vibrio Cholerae Not Detected (Not Detect.)
[2023-03-11 10:09] LABS: Adenovirus F 40/41 Not Detected (Not Detect.); Astrovirus Not Detected (Not Detect.); Cryptosporidium Not Detected (Not Detect.); Cyclospora cayetanensis Not Detected (Not Detect.); E. coli EAEC Not Detected (Not Detect.); E. coli EPEC Not Detected (Not Detect.); E. coli ETEC Not Detected (Not Detect.); E. coli STEC Not Detected (Not Detect.); Entamoeba histolytica Not Detected (Not Detect.); Giardia lamblia Not Detected (Not Detect.); Norovirus GI/GII Not Detected (Not Detect.); Rotavirus A Not Detected (Not Detect.); Sapovirus Not Detected (Not Detect.); Shigella sp./EIEC Not Detected (Not Detect.); Yersinia enterocolitica Not Detected (Not Detect.)
[2023-03-11] MEDS: vancomycin HCL 1,500 MG in 0.9 % Sodium Chloride 500 ML 333.33 MG IV (11:21)
--- NOTE | 2023-03-11 11:40 | PHA.PROG ---
Admission Date/Time: March 10, 2023 23:52 Indication: OTHER, SEPSIS/PNA/ CATHETER INFECTION Weight in k.2 kg Adjusted body weight in K.1 Kincaid body weight in Kg: Obesity Dosing Indication % IBW: Serum Creatinine - Last 168 Hours 03/10/23 03/11/23 20:45 02:22 Creatinine 2.55 H 2.96 H Estimated CrCl and GFR - Last 168 Hours 03/10/23 03/11/23 20:45 02:22 Estim Creat Clear Calc 20.1 17.3 Estimated GFR 18 15 Vancomycin Loading Dose: 1500 MG Current Vancomycin Dosing Regimen: DOSE BASED ON LEVEL Vancomycin Monitoring using AUC goal of 400 - 600 range with trough as surrogate marker: Date and Time for next Vancomycin Level to be drawn: Pharmacist Comments on Vancomycin Plan: WILL CONFIRM HD SCHEDULE AND TIME TROUGH AFTER NEXT DIALYSIS SESSION Vancomycin dosing will take advantage of [employer] ([employer]) as a clinical decision support tool that uses Bayesian modeling to calculate individual patient's pharmacokinetic parameters and forecast the patient's drug concentration time course with the target goal AUC 24 range of 400 - 600 mg/L/hr.
--- NOTE | 2023-03-11 11:45 | MHC.CM.PN ---
Addendum entered by Danielle Keys 03/11/23 15:12: HOUSECLEAN[facility] FLOOR COMPLETED USING EMR CM WILL ATTEMPT TO REACH PTS SON AGAIN AT A LATER TIME Addendum entered by Danielle Keys 03/11/23 15:07: [facility] RESPONDED STATING THE PTS HCP IS HER SON, WINDY THEY PROVIDED A PHONE NUMBER OF [phone] CM PROVIDED THE NUMBER TO THE PT AND THE NURSE ASSISTED HER IN USING THE PHONE CM ATTEMPTED TO REACH WINDY TO COMPLETE THE HOUSECLEANER FLOOR, HOWEVER CALL WENT TO MESSAGE LEFT WITH [employer] AND A REQUEST FOR A RETURN CALL [facility] HAS ALSO CONFIRMED PT IS A BED HOLD WITH THEM DCPl RETURN TO [facility] Original Note: PT HERE FROM [facility] NO HCP OR NEXT OF KIN INFO ON FILE MESSAGE SENT TO [facility] REQUESTING INFO DCPl RETURN TO [facility]
--- NOTE | 2023-03-11 13:36 | PC.NURSE ---
20G IV right AC via ED PA with US.
[2023-03-11] MEDS: Lactulose 20 GM/30 ML SOLUTION 10 GM PO ×2 (15:20→21:59)
[2023-03-11] MEDS: LORazepam 1 MG TABLET PO (21:59)
[2023-03-11] MEDS: Montelukast Sodium 10 MG TABLET PO (21:59)
[2023-03-11] MEDS: cefTRIAXone sodium 1 GM in 0.9 % Sodium Chloride 50 ML IV (21:59)
[2023-03-12] MEDS: Azithromycin 500 MG in 0.9 % Sodium Chloride 250 ML 125 MG IV (02:35)
[2023-03-12 04:00] VITALS: BP 110/42; PULSE 104; RESP 18; TEMP 36.8; O2SAT 93
[2023-03-12] MEDS: Omeprazole 20 MG CAPSULE.DR PO (05:39)
[2023-03-12 06:39] LABS: Creatinine Clr Calc Pharmacy 13.2; Estimated Glomerular Filt Rate 11
[2023-03-12 07:57] VITALS: BP 127/58; PULSE 102; RESP 20; TEMP 36.7; O2SAT 95
[2023-03-12] MEDS: Lactulose 20 GM/30 ML SOLUTION 10 GM PO ×2 (08:52→20:29)
[2023-03-12] MEDS: Thiamine HCL 100 MG TABLET PO (08:52)
[2023-03-12] MEDS: Multivitamin TABLET 1 TAB PO (08:52)
[2023-03-12] MEDS: LORazepam 1 MG TABLET PO ×2 (08:53→20:29)
[2023-03-12] MEDS: Sertraline HCL 50 MG TABLET PO (08:53)
[2023-03-12] MEDS: 0.9 % Sodium Chloride Flush 3 ML SYRINGE IVFLUSH ×3 (08:57→20:30)
--- NOTE | 2023-03-12 09:09 | P.PNIM_ITS ---
Subjective Subjective Date of Service: 03/12/23 Review of Systems follow-up pneumonia Denies shortness of breath, cough Some mild confusion noted Physical Exam Vital Signs: Vital Signs: Last Vital Signs Temp 98.0 F 03/12/23 07:57 Pulse 102 H 03/12/23 07:57 Resp 20 03/12/23 07:57 BP 127/58 L 03/12/23 07:57 Pulse Ox 95 03/12/23 07:57 O2 Del Method Room Air 03/12/23 07:57 BMI result Body Mass Index 31.5 Appearing in no acute distress lung sounds are clear to auscultation heart regular rate rhythm, clear S1, S2 positive bowel sounds, abdomen is soft, nontender neuro patient is alert x3, no focal deficits Objective Data Active Medications Acetaminophen (Acetaminophen 325 Mg Tablet) 650 mg PO Q6H PRN PRN Reason: Pain, Mild (Pain Scale 1-3) Acetaminophen (Acetaminophen Supp 650 Mg Supp.Rect) 650 mg [place] Q6H PRN PRN Reason: Pain, Mild (Pain Scale 1-3) Epoetin Keyshawn (Epoetin Keyshawn 10,000 Unit/Ml Vial) 10,000 unit SUBCUT Q7D [facility] Last Admin: 03/11/23 12:37 Dose: 10,000 unit Documented By: DEEPALI Ergocalciferol (Ergocalciferol (Vitamin D2) 1,250 Mcg Capsule) 1,250 mcg PO Q28D [facility] Ceftriaxone Sodium 1 gm/ (Sodium Chloride) 50 mls @ 100 mls/hr IV Q24H [facility] Last Infusion: 03/11/23 22:30 Dose: 0 mls/hr Documented By: EDVIN Azithromycin 500 mg/ Sodium (Chloride) 250 mls @ 125 mls/hr IV Q24H [facility] Last Infusion: 03/12/23 04:40 Dose: 0 mls/hr Documented By: EDVIN Vancomycin HCl 500 mg/ Sodium (Chloride) 110 mls @ 110 mls/hr IV TuThSa@1999 ONE Stop: 03/13/23 20:59 Lactulose (Lactulose 20 Gm/30 Ml Solution) 10 gm PO TID [facility] Last Admin: 03/12/23 08:52 Dose: 10 gm Documented By: DEEPALI Lorazepam (Lorazepam 1 Mg Tablet) 1 mg PO BID [facility] Last Admin: 03/12/23 08:53 Dose: 1 mg Documented By: DEEPALI Melatonin (Melatonin 3 Mg Tablet) 6 mg PO BEDTIME PRN PRN Reason: Insomnia Montelukast Sodium (Montelukast Sodium 10 Mg Tablet) 10 mg PO BEDTIME [facility] Last Admin: 03/11/23 21:59 Dose: 10 mg Documented By: EDVIN Multivitamins/Vitamin C (Multivitamin Tablet) 1 tab PO DAILY [facility] Last Admin: 03/12/23 08:52 Dose: 1 tab Documented By: DEEPALI Omeprazole (Omeprazole 20 Mg Capsule.) 20 mg PO DAILY@0630 [facility] Last Admin: 03/12/23 05:39 Dose: 20 mg Documented By: EDVIN Ondansetron HCl (Ondansetron Hcl 4 Mg/2 Ml Vial) 4 mg IVPUSH Q8H PRN PRN Reason: Nausea and Vomiting Pharmacy Consult (Consult Rx Vancomycin Dosing) 1 each MISCELLANE DAILY PRN PRN Reason: Consult order Sertraline HCl (Sertraline Hcl 50 Mg Tablet) 50 mg PO DAILY [facility] Last Admin: 03/12/23 08:53 Dose: 50 mg Documented By: DEEPALI Sodium Chloride (0.9 % Sodium Chloride Flush 3 Ml Syringe) 3 ml IVFLUSH QSHIFT [facility] Last Admin: 03/12/23 08:57 Dose: 3 ml Documented By: DEEPALI Thiamine HCl (Thiamine Hcl 100 Mg Tablet) 100 mg PO DAILY [facility] Last Admin: 03/12/23 08:52 Dose: 100 mg Documented By: DEEPALI Labs 03/11/23 02:22 03/12/23 05:46 Labs: Laboratory Results - last 24 hr 03/10/23 03/12/23 23:31 05:46 Estim Creat Clear Calc 13.2 Estimated GFR 11 Stl C. cayetanensis PCR Not Detected Stool Rotavirus A PCR Not Detected Stl Adenov F 40/41 PCR Not Detected Stool Astrovirus (PCR) Not Detected Stool Campylobacter PCR Not Detected Stool Cryptosporidium PCR Not Detected Stl Sh Tox Pr E STEC PCR Not Detected Stool E coli O157 PCR Not applicable Stl Enterotoxigenic E PCR Not Detected Stool EPEC (PCR) Not Detected Stool EAEC (PCR) Not Detected Stl E. histolytica PCR Not Detected Stool Giardia Lamblia PCR Not Detected Stl P. shigelloides PCR Not Detected Stool Salmonella PCR Not Detected Stool Sapovirus (PCR) Not Detected Stl Shigella/EIEC PCR Not Detected St Y.enterocolitica PCR Not Detected Stool Vibrio (PCR) Not Detected Stl Vibrio cholerae PCR Not Detected Stl Norovirus GI/GII PCR Not Detected Microbiology Microbiology Results: Microbiology 03/10/23 20:50 Blood Culture - Preliminary Blood - Venous No growth after 24 hours. 03/10/23 20:45 Blood Culture - Preliminary Blood - Venous No growth after 24 hours. Assessment and Plan (1) Fever: Status: Acute Plan This is a 72-year-old female with pertinent history of ESRD on dialysis, gastroesophageal reflux disease, cirrhosis who was brought to the emergency department for fever and cough. Sepsis secondary to pneumonia + UTI.? sepsis resolved blood cultures neg after 24 hours continue Rocephin and vancomycin due to concern for line sepsis as patient has a PermCath Community-acquired pneumonia versus aspiration Rocephin and vancomycin Patient passed nursing bedside evaluation wean down off oxygen Follow-up final cultures UTI Continue Rocephin Follow urine culture Acute metabolic encephalopathy in the setting of above.? Monitor mentation with IV antibiotics.? Cirrhosis.? Continue lactulose normal ammonia GI consultation for abnormal abdominal CT Thrombocytopenia.? Likely in the setting of cirrhosis.? s/ p platelet transfusion.? Continue to monitor.? No active bleeding on admission ESRD on hemodialysis.? seen evaluated by Nephrology>rec treating for Staph aureus due to concern of PermCath line sepsis epo 56149 units weekly starting today dialysis T,TH,Sat Macrocytic anemia.? Obtaining B12 and folate.? Hemoglobin above transfusion threshold DVT prophylaxis:? Mechanical.? Defer Lovenox in the setting of thrombocytopenia Attending Dr. Zaragoza Full code Continue hospitalization for treatment of pneumonia requiring IV antibiotics and urinary tract infection Time Spent With Patient Time: Total time managing care of this patient today ____ minutes. Quality Stroke Does the patient have a stroke diagnosis?: No VTE Prior VTE?: No VTE Risk Level:: Medical - moderate - high VTE Device Contraindication: Treatment Not Indicated VTE Drug Contraindication: N/A - Med Ordered
--- NOTE | 2023-03-12 11:34 | MHC.SLORD ---
Speech Language Pathology Order Status: Per RN, patient passed RN swallow screen and has been eating regular trays. Per MD, COST COORDINATOR swallow evaluation not needed at this time.
--- NOTE | 2023-03-12 14:44 | MHC.CM.PN ---
MESSAGE LEFT FOR SAMARA TEMPLE WHO RETURNED CM PHONE CALL. PLAN FOR PT TO RETURN TO [facility] DC.
[2023-03-12 15:18] VITALS: BP 113/54; PULSE 78; RESP 18; TEMP 36.1; O2SAT 97
[2023-03-12 19:33] VITALS: BP 124/59; PULSE 88; RESP 18; TEMP 36.4; O2SAT 97
[2023-03-12] MEDS: Montelukast Sodium 10 MG TABLET PO (20:29)
[2023-03-12] MEDS: cefTRIAXone sodium 1 GM in 0.9 % Sodium Chloride 50 ML IV (21:23)
[2023-03-13] MEDS: Azithromycin 500 MG in 0.9 % Sodium Chloride 250 ML 125 MG IV (01:59)
[2023-03-13 03:30] VITALS: BP 111/58; PULSE 94; RESP 18; TEMP 36.6; O2SAT 95
[2023-03-13] MEDS: Omeprazole 20 MG CAPSULE.DR PO (05:26)
[2023-03-13 06:45] LABS: Creatinine Clr Calc Pharmacy 12.3; Estimated Glomerular Filt Rate 10
[2023-03-13] MEDS: 0.9 % Sodium Chloride Flush 3 ML SYRINGE IVFLUSH (07:28)
[2023-03-13 07:41] VITALS: BP 99/56; PULSE 89; RESP 16; TEMP 36.4; O2SAT 96
[2023-03-13] MEDS: Sertraline HCL 50 MG TABLET PO (08:19)
[2023-03-13] MEDS: Thiamine HCL 100 MG TABLET PO (08:19)
[2023-03-13] MEDS: LORazepam 1 MG TABLET PO (08:19)
[2023-03-13] MEDS: Multivitamin TABLET 1 TAB PO (08:51)
--- NOTE | 2023-03-13 09:12 | MHC.CM.PN ---
IMM 03/12/23 per MD patient ready to return to [facility] today. The facility has been notified that Infectious disease will weigh in prior to discharge. DP return to [facility] via BLS.
--- NOTE | 2023-03-13 09:19 | P.DS_ITS ---
DS: Providers Provider Date of Service: 03/13/23 Date of admission: 03/10/23 23:52 Primary care physician: Unknown Physician Consults: 03/11/23 01:51 Consult to Nephrology Routine Consulting Provider: Ashley Owens Reason for consultation: ESRD 03/11/23 09:55 Consult to Gastroenterology Routine Consulting Provider: Gerson Guzman Reason for consultation: abnormal abd ct DS: Diagnosis Discharge Diagnosis (1) Fever: Status: Acute DS: Summary Hospital Course Hospital Course: 72-year-old woman treated for sepsis secondary to pneumonia and urinary tract infection. She was treated with Rocephin and azithromycin initially due to concern for PermCath line sepsis, as per Nephrology, vancomycin was initiated. Patient's blood cultures have been negative for 48 hours, no fever leukocytosis noted. No evidence of line sepsis. Will treat with 3 more days of oral antibiotics for total 5 day treatment, this will also cover for her UTI, urine cultures have been negative. Metabolic encephalopathy did resolve after treatment for infection. She did receive hemodialysis while inpatient, normal dialysis days Sunday, and Sunday. She was initiated Procrit, every 7 days, 1st dose 03/11/2023 as per Nephrology. Cirrhosis. Continue lactulose Thrombocytopenia. Chronic in the setting of liver cirrhosis did receive 1 unit platelet transfusion. , no active bleeding during admission End-stage renal disease on hemodialysis. Continue normal dialysis days Sunday, and Sunday Macrocytic anemia. Chronic Time Spent with Patient Time attestation: Total time managing care of this patient today ____ minutes. Discharge coordination time: Greater than 30 minutes Quality: Safe Use of Opioids Does Pt have an Active Cancer Diagnosis on the Problem List?: No Quality: Stroke Does the patient have a stroke diagnosis?: No Physical Exam Vital Signs: Vital Signs: Last Vital Signs Temp 97.6 F 03/13/23 07:41 Pulse 89 03/13/23 07:41 Resp 16 03/13/23 07:41 BP 99/56 L 03/13/23 07:41 Pulse Ox 96 03/13/23 07:41 O2 Del Method Room Air 03/13/23 07:41 BMI result Body Mass Index 31.5 Appearing in no acute distress head is normocephalic atraumatic eyes pupils are PERRLA sclera is anicteric mouth throat mucous membranes are intact and moist neck is supple no lymphadenopathy, no JVD noted lung sounds are clear to auscultation heart regular rate rhythm, clear S1, S2 positive bowel sounds, abdomen is soft, nontender neuro patient is alert x3, no focal deficits DS: Data Data Completed and Pending Labs on day of discharge: Laboratory Results - last 24 hr 03/13/23 05:48 Creatinine 4.17 H* Estim Creat Clear Calc 12.3 Estimated GFR 10 Preliminary micro results at discharge 03/10/23 20:50 Blood Culture - Preliminary Blood - Venous No growth after 48 hours. 03/10/23 20:45 Blood Culture - Preliminary Blood - Venous No growth after 48 hours. Discharge Plan Discharge Anticipated Discharge Date/Time: 03/13/23 09:14 Patient Disposition: er [facility] Discharge Diagnosis: Sepsis Community-acquired pneumonia UTI Acute metabolic encephalopathy Referrals: [facility] [Outside] - 1 Week Discharge Medications: New Procrit 10,000 unit/mL Solution 10,000 unit subcut Q7D Qty: 6 0RF cefuroxime axetil 500 mg tablet 500 mg PO BID Qty: 6 0RF azithromycin 500 mg tablet 500 mg PO DAILY 3 Days Qty: 3 0RF Continued acetaminophen 325 mg Tablet 650 mg PO Q8H PRN (Reason: Pain) lorazepam 1 mg Tablet 1 mg PO BID diclofenac sodium 1 % Gel 2 g TOPICAL TID PRN (Reason: Pain) Rx Instructions: apply to single elbow, wrist or hand; for hand includes palm/fingers/back of hand multivitamin Tablet 1 tab PO DAILY ondansetron HCl 4 mg Tablet 4 mg PO Q6H PRN (Reason: Nausea) thiamine HCl (vitamin B1) 100 mg Tablet 100 mg PO DAILY insulin aspart U-100 100 unit/mL Solution 1 sliding scale dose SUBCUT USEASDIRECTD pantoprazole 40 mg tablet,delayed release (DR/EC) 40 mg PO DAILY montelukast 10 mg Tablet 10 mg PO BEDTIME ergocalciferol (vitamin D2) 1,250 mcg (50,000 unit) Capsule 1,250 mcg PO QMONTH nystatin 100,000 unit/gram Powder 1 appl TOPICAL BID sertraline 50 mg Tablet 50 mg PO DAILY lactulose 10 gram/15 mL (15 mL) Solution 10 g PO TID Discontinued doxycycline hyclate 100 mg Tablet 100 mg PO BID Rx Instructions: for 4 weeks starting 03/09 Discharge Orders: Discharge Order (Routine); Ordered 03/13/23 Ordered By: Kavita Wilks Diet: Advance to usual diet Activity on Discharge: As tolerated Stand Alone Forms: Patient Portal Discharge page Care Plan Goals: Complete resolution of symptoms Health Concerns: Sepsis Community-acquired pneumonia UTI Acute metabolic encephalopathy End-stage renal disease on dialysis Plan of Treatment: Follow-up with primary care provider as needed take all medications as prescribed Last dose of Procrit was 03/11/2023 Assessment: See discharge summary
[2023-03-13] MEDS: Midodrine HCl 10 MG TABLET PO (10:00)
--- NOTE | 2023-03-13 13:31 | CONS_ITS ---
DATE OF SERVICE: 03/12/2023 REFERRING PHYSICIAN: Tamika Arriaza MD REASON FOR CONSULTATION: Cirrhosis and abnormal CT scan. HISTORY OF PRESENT ILLNESS: The patient is a 72-year-old woman, who was admitted to the hospital on March 11 because of fever and cough. As part of her evaluation in the emergency department, she underwent CT scanning of the abdomen and pelvis, which was reviewed. This was done because of the question of C diff colitis and is reviewed and is interpreted as showing changes consistent with cirrhosis, borderline enlarged spleen, and lobulated densities in the left upper quadrant, which could reflect dilated vessels. The assessment was limited on the examination as no contrast was given due to the patient's history of kidney disease. The patient has been treated in [place] prior to coming to [place] and has been evaluated by a adobe layer. She reports undergoing endoscopy last year, although those results are not available and she does not know any details. She has a history of cirrhosis, but states she does not drink alcohol. She denies any GI bleeding. PAST MEDICAL HISTORY: 1. Gastroesophageal reflux disease. 2. Cirrhosis. 3. End-stage renal disease, on dialysis. 4. Pneumonia. 5. UTI. CURRENT MEDICATIONS: Her current medication list is reviewed in the chart. ALLERGIES: SHELLFISH AND SULFA. FAMILY HISTORY: This is reviewed with the patient and is positive for cirrhosis and several other relatives who drink alcohol. There is no history of substance abuse. REVIEW OF SYSTEMS: SKIN: No pruritus. HEENT: Negative. CARDIOPULMONARY: No shortness of breath or chest pain. GASTROINTESTINAL: As above. GENITOURINARY: Negative. NEUROPSYCHIATRIC: Negative. PHYSICAL EXAMINATION: GENERAL: Shows a pleasant elderly female who speaks German. The history is obtained with the use of an it systems analyst consultant. VITAL SIGNS: Reviewed in the electronic medical record and are stable. SKIN: Anicteric. HEENT: Shows no scleral icterus. NECK: Without lymphadenopathy or thyromegaly. LUNGS: Clear. HEART: Shows a regular rate and rhythm. S1, S2. No murmur. ABDOMEN: Soft without focal mass or tenderness. Bowel sounds are present. No organomegaly is noted. EXTREMITIES: Show Venodyne compression boots in place. IMPRESSION: Cirrhosis. The etiology for this is not clear. Possible causes include fatty liver with progression to nonalcoholic steatohepatitis and cirrhosis on the basis. Other possible causes could include autoimmune liver disease and viral liver disease. Although, these seem less likely given the fact that she has had previous evaluation. The abnormal findings on her CT would likely represent varices in the appropriate setting given her history of cirrhosis and CT with contrast has been recommended. I would recommend obtaining if she is stable from renal standpoint. Alternatively, MR imaging could be considered, but she would need contrast for this as well. Thanks for asking me to see her. I will follow her in the hospital with you. MD CATIA Foster/PAIGE / [id number]
[2023-03-13 15:28] VITALS: BP 115/57; PULSE 114; RESP 20; TEMP 36.8; O2SAT 95
--- NOTE | 2023-03-14 13:53 | CONS_ITS ---
DATE OF SERVICE: 03/13/2023 HISTORY OF PRESENT ILLNESS: I was asked to see patient to assist in evaluation and management of patient's dialysis needs in the setting of coming to the hospital complaining of fever and cough and question of pneumonia. The patient states she has been having a cough for the past several days. She is normally a Sunday, , Sunday dialysis patient, and she missed her treatment today and so therefore we will get her dialyzed today. PAST MEDICAL HISTORY: As noted above includes ESRD, cirrhosis, and GERD along with anemia and secondary hyperparathyroidism. MEDICATIONS: On admission, noted in the admitting notes. ALLERGIES: SHE HAS MULTIPLE DRUG ALLERGIES LISTED. SOCIAL HISTORY: She is nonsmoker, nondrinker. No illicit drug use. REVIEW OF SYSTEMS: As noted above. PHYSICAL EXAMINATION: VITAL SIGNS: Blood pressure of 116/60 with a heart rate of 110. HEAD: Atraumatic and normocephalic. NECK: Supple. Mucous membranes are moist. LUNGS: Decreased breath sounds at bases. CARDIAC: Regular rate and rhythm. ABDOMEN: Soft, nontender. Good bowel sounds. No CVA tenderness. EXTREMITIES: Show no edema. LABORATORY DATA: Hemoglobin 8.8, hematocrit 26.9, white blood cell count of 6.9. Sodium 137, potassium 4.2, chloride 102, bicarb 29. IMPRESSION: End-stage renal disease patient admitted to the hospital with question pneumonia. 1. End-stage renal disease. We will dialyze her today, keep her on Sunday, , Sunday schedule. 2. Question of pneumonia. She was started on antibiotics. She did have a chest CT, which raised concern about an abnormality consistent with pneumonia. We will follow the patient closely with the team, as we continue her on dialysis and see what other treatments necessary for her clinical presentation and follow with the team. MD ROMULO Jones/PAIGE / [id number]
== END 2023-03-13 16:54 | DRG 871 ==
LOC: HO.ED 23:56 → HO.EDOVER 03-11 00:29 → HO.S3 03-11 01:55
PROVIDERS: Admitting Provider Student in an Organized Health Care Education/Training Program; Emergency Provider Student in an Organized Health Care Education/Training Program; PCP Family Medicine; Visit Provider Nurse Practitioner Acute Care
DX: A41.9 Sepsis, unspecified organism (principal); G93.41 Metabolic encephalopathy; J18.9 Pneumonia, unspecified organism; N18.6 End stage renal disease; N39.0 Urinary tract infection, site not specified; D53.9 Nutritional anemia, unspecified; D63.1 Anemia in chronic kidney disease; D69.59 Other secondary thrombocytopenia; K74.60 Unspecified cirrhosis of liver; E11.22 Type 2 diabetes mellitus with diabetic chronic kidney disease; K21.9 Gastro-esophageal reflux disease without esophagitis; J43.9 Emphysema, unspecified; Z99.2 Dependence on renal dialysis; Z79.4 Long term (current) use of insulin; Z79.899 Other long term (current) drug therapy
CPT/HCPCS: 36415; 71250; 73200; 74176; 80048; 80053; 81001; 82140; 82565; 82607; 82746; 83605; 83880; 85025; 85610; 86850; 86900; 86901; 87040; 87086; 87493; 87507; 90999; 99284; J0456; J0696; J0885; J1643; J3371; P9073

== ENCOUNTER → 2023-03-10 23:52 | Outpatient (BNV) | payer MEDICARE, MEDICAID, SELFPAY | PROVIDERS: Admitting Provider Student in an Organized Health Care Education/Training Program; Emergency Provider Student in an Organized Health Care Education/Training Program; Visit Provider Student in an Organized Health Care Education/Training Program | DX: R50.9 Fever, unspecified (principal) | CPT/HCPCS: 99223; 99232; 99239; 99499 ==

== ENCOUNTER 2023-04-23 06:33 | Outpatient (REF) | payer MEDICARE, MEDICAID, SELFPAY ==
[2023-04-23 06:41] LABS: MANUAL DIFF FLAG NO
[2023-04-23 07:21] LABS: Basophils Percent Auto 0.7 % (0-2); Eosinophils Absolute Auto 0.1 X10*3/uL (0.0-0.4); Eosinophils Percent Auto 3.1 % (0-4); Hematocrit 27.9 % (37.0-47.0); Hemoglobin 9.3 g/dl (12.0-16.0); Imm Gran Abs Auto 0.01 X10*3/uL (0.00-0.03); Imm Gran Pct Auto 0.2 % (0.0-0.4); Lymphocytes Absolute Auto 1.1 X10*3/uL (1.2-4.9); Lymphocytes Percent Auto 23.5 % (20-40); Mean Corpuscular HGB Conc 33.3 g/dl (31.0-35.0); Mean Corpuscular Hemoglobin 34.4 pg (27.0-33.0); Mean Corpuscular Volume 103.3 fL (80.0-98.0); Mean Platelet Volume 11.9 fL (9.4-12.3); Monocytes Absolute Auto 0.6 X10*3/uL (0.1-1.2); Monocytes Percent Auto 13.2 % (2-11); Neutrophils Absolute Auto 2.7 x10*3/uL (2.0-8.3); Neutrophils Percent Auto 59.3 % (45-73); Red Cell Distribution Width 17.3 % (11.0-16.0); White Blood Count 4.6 X10*3/uL (4.8-10.8)
[2023-04-23 07:23] LABS: Platelet Count 29 X10*3/uL (160-400)
[2023-04-23 08:05] LABS: Erythrocyte Sedimentation Rate 7 MM/HR (0-20)
[2023-04-23 08:06] LABS: Alanine Aminotransferase 27 U/L (0-31); Albumin Level 1.8 g/dL (3.5-5.0); Alkaline Phosphatase 261 U/L (39-117); Anion Gap 14 (12-20); Aspartate Amino Transferase 63 U/L (5-31); Bilirubin Total 4.2 mg/dL (0.0-1.0); Blood Urea Nitrogen 31 mg/dL (9-16); C Reactive Protein 3.01 mg/dL (< or = 0.50); Calcium 8.4 mg/dL (8.4-10.2); Carbon Dioxide 25 mmol/L (22-29); Chloride 102 mmol/L (96-108); Estimated Glomerular Filt Rate 10; Glucose Random 73 mg/dL (60-115); Potassium 3.8 mmol/L (3.3-5.1); Sodium 137 mmol/L (135-145); Total Protein 4.9 g/dL (6.5-8.0)
== END 2023-04-23 06:34 | disposition home or self-care (01) ==
LOC: HO.MMNH2L 06:33
PROVIDERS: Visit Provider Family Medicine
DX: A41.9 Sepsis, unspecified organism (principal)
CPT/HCPCS: 36415; 80053; 85025; 85652; 86140

== ENCOUNTER 2023-04-29 07:19 | Outpatient (REF) | payer MEDICARE, MEDICAID, SELFPAY ==
[2023-04-29 07:22] LABS: MANUAL DIFF FLAG NO
[2023-04-29 07:28] LABS: Basophils Percent Auto 0.8 % (0-2); Eosinophils Absolute Auto 0.2 X10*3/uL (0.0-0.4); Eosinophils Percent Auto 4.6 % (0-4); Hemoglobin 8.5 g/dl (12.0-16.0); Imm Gran Abs Auto 0.01 X10*3/uL (0.00-0.03); Imm Gran Pct Auto 0.2 % (0.0-0.4); Lymphocytes Absolute Auto 1.1 X10*3/uL (1.2-4.9); Lymphocytes Percent Auto 23.8 % (20-40); Mean Corpuscular Volume 102.9 fL (80.0-98.0); Mean Platelet Volume 11.8 fL (9.4-12.3); Monocytes Absolute Auto 0.7 X10*3/uL (0.1-1.2); Monocytes Percent Auto 14.2 % (2-11); Neutrophils Absolute Auto 2.7 x10*3/uL (2.0-8.3); Neutrophils Percent Auto 56.4 % (45-73); Red Blood Count 2.43 X10*6/uL (4.20-5.50); Red Cell Distribution Width 17.5 % (11.0-16.0); White Blood Count 4.8 X10*3/uL (4.8-10.8)
[2023-04-29 07:32] LABS: Platelet Count 23 X10*3/uL (160-400)
[2023-04-29 07:47] LABS: Anion Gap 13 (12-20); Blood Urea Nitrogen 22 mg/dL (9-16); Calcium 8.3 mg/dL (8.4-10.2); Carbon Dioxide 26 mmol/L (22-29); Chloride 102 mmol/L (96-108); Estimated Glomerular Filt Rate 14; Glucose Random 77 mg/dL (60-115); Potassium 3.1 mmol/L (3.3-5.1); Sodium 138 mmol/L (135-145)
[2023-04-29 10:01] LABS: Adenovirus PCR Not Detected (Not Detect.); Bordetella parapertussis PCR Not Detected (Not Detect.); Bordetella pertussis PCR Not Detected (Not Detect.); Chlamydia pneumoniae PCR Not Detected (Not Detect.); Coronavirus 229E PCR Not Detected (Not Detect.); Coronavirus HKU1 PCR Not Detected (Not Detect.); Coronavirus NL63 PCR Not Detected (Not Detect.); Coronavirus OC43 PCR Not Detected (Not Detect.); Human metapneumovirus PCR Not Detected (Not Detect.); Influenza A PCR Not Detected (Not Detect.); Influenza B PCR Not Detected (Not Detect.); Mycoplasma pneumoniae PCR Not Detected (Not Detect.); Parainfluenza 1 PCR Not Detected (Not Detect.); Parainfluenza 2 PCR Not Detected (Not Detect.); Parainfluenza 3 PCR Not Detected (Not Detect.); Parainfluenza 4 PCR Not Detected (Not Detect.); RSV PCR Not Detected (Not Detect.); Rhino/Enterovirus PCR Not Detected (Not Detect.)
[2023-04-29 10:11] LABS: SARS-CoV-2 PCR Not Detected (Not Detect.)
== END 2023-04-29 07:20 | disposition home or self-care (01) ==
LOC: HO.MMNH2L 07:19
PROVIDERS: Visit Provider Family Medicine
DX: E11.9 Type 2 diabetes mellitus without complications (principal); E46 Unspecified protein-calorie malnutrition; R05.9 Cough, unspecified; R50.9 Fever, unspecified
CPT/HCPCS: 36415; 80048; 85025; 87633

== ENCOUNTER 2023-04-30 06:09 | Outpatient (REF) | payer MEDICARE, MEDICAID, SELFPAY ==
[2023-04-30 06:07] LABS: MANUAL DIFF FLAG NO
[2023-04-30 07:22] LABS: Basophils Percent Auto 0.6 % (0-2); Eosinophils Absolute Auto 0.2 X10*3/uL (0.0-0.4); Hematocrit 27.3 % (37.0-47.0); Hemoglobin 9.3 g/dl (12.0-16.0); Imm Gran Abs Auto 0.02 X10*3/uL (0.00-0.03); Imm Gran Pct Auto 0.4 % (0.0-0.4); Lymphocytes Absolute Auto 0.8 X10*3/uL (1.2-4.9); Mean Corpuscular HGB Conc 34.1 g/dl (31.0-35.0); Mean Corpuscular Hemoglobin 34.8 pg (27.0-33.0); Mean Corpuscular Volume 102.2 fL (80.0-98.0); Mean Platelet Volume 12.1 fL (9.4-12.3); Monocytes Absolute Auto 0.6 X10*3/uL (0.1-1.2); Monocytes Percent Auto 12.2 % (2-11); Neutrophils Absolute Auto 3.5 x10*3/uL (2.0-8.3); Neutrophils Percent Auto 68.8 % (45-73); Red Blood Count 2.67 X10*6/uL (4.20-5.50); Red Cell Distribution Width 17.4 % (11.0-16.0); White Blood Count 5.1 X10*3/uL (4.8-10.8)
[2023-04-30 07:23] LABS: Platelet Count 36 X10*3/uL (160-400)
[2023-04-30 08:20] LABS: Anion Gap 13 (12-20); Blood Urea Nitrogen 32 mg/dL (9-16); C Reactive Protein 3.63 mg/dL (< or = 0.50); Calcium 8.4 mg/dL (8.4-10.2); Carbon Dioxide 24 mmol/L (22-29); Chloride 103 mmol/L (96-108); Estimated Glomerular Filt Rate 10; Glucose Random 103 mg/dL (60-115); Phosphorus 3.9 mg/dL (2.7-4.5); Potassium 3.4 mmol/L (3.3-5.1); Sodium 137 mmol/L (135-145)
[2023-04-30 08:24] LABS: Erythrocyte Sedimentation Rate 14 MM/HR (0-20)
== END 2023-04-30 06:10 | disposition home or self-care (01) ==
LOC: HO.MMNH2L 06:09
PROVIDERS: Visit Provider Family Medicine
DX: A41.9 Sepsis, unspecified organism (principal)
CPT/HCPCS: 36415; 80048; 84100; 85025; 85652; 86140

== ENCOUNTER 2023-05-07 06:19 | Outpatient (REF) | payer OTHER, SELFPAY ==
[2023-05-07 06:51] LABS: Eosinophils Absolute Auto 0.1 X10*3/uL (0.0-0.4); Imm Gran Abs Auto 0.02 X10*3/uL (0.00-0.03); Imm Gran Pct Auto 0.4 % (0.0-0.4)
[2023-05-07 06:53] LABS: Basophils Percent Auto 0.7 % (0-2); Hematocrit 27.8 % (37.0-47.0); Hemoglobin 9.4 g/dl (12.0-16.0); Lymphocytes Absolute Auto 0.9 X10*3/uL (1.2-4.9); Lymphocytes Percent Auto 15.6 % (20-40); Mean Corpuscular HGB Conc 33.8 g/dl (31.0-35.0); Mean Corpuscular Hemoglobin 35.2 pg (27.0-33.0); Mean Corpuscular Volume 104.1 fL (80.0-98.0); Mean Platelet Volume 11.4 fL (9.4-12.3); Monocytes Absolute Auto 0.7 X10*3/uL (0.1-1.2); Neutrophils Absolute Auto 3.7 x10*3/uL (2.0-8.3); Neutrophils Percent Auto 68.3 % (45-73); Red Blood Count 2.67 X10*6/uL (4.20-5.50); Red Cell Distribution Width 17.8 % (11.0-16.0)
[2023-05-07 06:54] LABS: Platelet Count 33 X10*3/uL (160-400); White Blood Count 5.5 X10*3/uL (4.8-10.8)
[2023-05-07 07:34] LABS: Erythrocyte Sedimentation Rate 17 MM/HR (0-20)
[2023-05-07 07:57] LABS: Anion Gap 13 (12-20); Blood Urea Nitrogen 37 mg/dL (9-16); C Reactive Protein 2.58 mg/dL (< or = 0.50); Calcium 8.4 mg/dL (8.4-10.2); Carbon Dioxide 25 mmol/L (22-29); Chloride 102 mmol/L (96-108); Glucose Random 86 mg/dL (60-115); Potassium 3.3 mmol/L (3.3-5.1); Sodium 137 mmol/L (135-145)
[2023-05-07 08:37] LABS: Estimated Glomerular Filt Rate 9
== END 2023-05-07 06:20 | disposition home or self-care (01) ==
LOC: HO.MMNH2L 06:19
PROVIDERS: Visit Provider Family Medicine
DX: A41.9 Sepsis, unspecified organism (principal)
CPT/HCPCS: 36415; 80048; 85025; 85652; 86140

== ENCOUNTER 2023-05-14 07:44 | Outpatient (REF) | payer MEDICARE, MEDICAID, SELFPAY ==
[2023-05-14 06:22] LABS: MANUAL DIFF FLAG NO
[2023-05-14 07:26] LABS: Basophils Percent Auto 0.5 % (0-2); Eosinophils Absolute Auto 0.1 X10*3/uL (0.0-0.4); Eosinophils Percent Auto 0.9 % (0-4); Hematocrit 29.7 % (37.0-47.0); Hemoglobin 10.1 g/dl (12.0-16.0); Imm Gran Abs Auto 0.02 X10*3/uL (0.00-0.03); Imm Gran Pct Auto 0.3 % (0.0-0.4); Lymphocytes Absolute Auto 0.7 X10*3/uL (1.2-4.9); Lymphocytes Percent Auto 9.6 % (20-40); Mean Corpuscular Hemoglobin 35.2 pg (27.0-33.0); Mean Corpuscular Volume 103.5 fL (80.0-98.0); Mean Platelet Volume 12.7 fL (9.4-12.3); Monocytes Absolute Auto 0.7 X10*3/uL (0.1-1.2); Monocytes Percent Auto 9.3 % (2-11); Neutrophils Absolute Auto 5.9 x10*3/uL (2.0-8.3); Neutrophils Percent Auto 79.4 % (45-73); Red Blood Count 2.87 X10*6/uL (4.20-5.50); Red Cell Distribution Width 17.8 % (11.0-16.0); White Blood Count 7.4 X10*3/uL (4.8-10.8)
[2023-05-14 07:28] LABS: Platelet Count 31 X10*3/uL (160-400)
[2023-05-14 07:45] LABS: Anion Gap 13 (12-20); Blood Urea Nitrogen 40 mg/dL (9-16); C Reactive Protein 3.24 mg/dL (< or = 0.50); Calcium 8.3 mg/dL (8.4-10.2); Carbon Dioxide 25 mmol/L (22-29); Chloride 102 mmol/L (96-108); Estimated Glomerular Filt Rate 8; Glucose Random 93 mg/dL (60-115); Potassium 3.1 mmol/L (3.3-5.1); Sodium 137 mmol/L (135-145)
[2023-05-14 07:47] LABS: Erythrocyte Sedimentation Rate 16 MM/HR (0-20)
== END 2023-05-14 07:45 | disposition home or self-care (01) ==
LOC: HO.MMNH2L 07:44
PROVIDERS: Visit Provider Family Medicine
DX: A41.9 Sepsis, unspecified organism (principal)
CPT/HCPCS: 36415; 80048; 85025; 85652; 86140

== ENCOUNTER 2023-05-21 06:23 | Outpatient (REF) | payer MEDICARE, MEDICAID, SELFPAY ==
[2023-05-21 06:19] LABS: MANUAL DIFF FLAG NO
[2023-05-21 07:07] LABS: Basophils Percent Auto 0.4 % (0-2); Eosinophils Absolute Auto 0.1 X10*3/uL (0.0-0.4); Eosinophils Percent Auto 1.6 % (0-4); Hematocrit 28.5 % (37.0-47.0); Hemoglobin 9.8 g/dl (12.0-16.0); Imm Gran Abs Auto 0.04 X10*3/uL (0.00-0.03); Imm Gran Pct Auto 0.6 % (0.0-0.4); Lymphocytes Absolute Auto 0.9 X10*3/uL (1.2-4.9); Lymphocytes Percent Auto 13.4 % (20-40); Mean Corpuscular HGB Conc 34.4 g/dl (31.0-35.0); Mean Corpuscular Hemoglobin 35.4 pg (27.0-33.0); Mean Corpuscular Volume 102.9 fL (80.0-98.0); Mean Platelet Volume 9.6 fL (9.4-12.3); Monocytes Absolute Auto 0.7 X10*3/uL (0.1-1.2); Neutrophils Absolute Auto 4.9 x10*3/uL (2.0-8.3); Red Blood Count 2.77 X10*6/uL (4.20-5.50); Red Cell Distribution Width 17.2 % (11.0-16.0); White Blood Count 6.7 X10*3/uL (4.8-10.8)
[2023-05-21 07:10] LABS: Platelet Count 35 X10*3/uL (160-400)
[2023-05-21 07:27] LABS: Anion Gap 12 (12-20); Blood Urea Nitrogen 37 mg/dL (9-16); Carbon Dioxide 25 mmol/L (22-29); Chloride 101 mmol/L (96-108); Glucose Random 75 mg/dL (60-115); Potassium 2.6 mmol/L (3.3-5.1); Sodium 135 mmol/L (135-145)
[2023-05-21 07:28] LABS: C Reactive Protein 5.21 mg/dL (< or = 0.50)
[2023-05-21 07:52] LABS: Estimated Glomerular Filt Rate 8
[2023-05-21 08:16] LABS: Erythrocyte Sedimentation Rate 12 MM/HR (0-20)
== END 2023-05-21 06:24 | disposition home or self-care (01) ==
LOC: HO.MMNH2L 06:23
PROVIDERS: Visit Provider Family Medicine
DX: A41.9 Sepsis, unspecified organism (principal)
CPT/HCPCS: 36415; 80048; 85025; 85652; 86140

== ENCOUNTER 2023-05-29 03:50 | Outpatient (REF) | payer MEDICARE, MEDICAID, SELFPAY ==
[2023-05-29 06:39] LABS: MANUAL DIFF FLAG NO
[2023-05-29 07:14] LABS: Basophils Absolute Auto 0.1 X10*3/uL (0.0-0.2); Basophils Percent Auto 0.9 % (0-2); Eosinophils Absolute Auto 0.1 X10*3/uL (0.0-0.4); Eosinophils Percent Auto 2.5 % (0-4); Hemoglobin 9.9 g/dl (12.0-16.0); Imm Gran Abs Auto 0.05 X10*3/uL (0.00-0.03); Imm Gran Pct Auto 0.9 % (0.0-0.4); Lymphocytes Absolute Auto 1.3 X10*3/uL (1.2-4.9); Lymphocytes Percent Auto 22.4 % (20-40); Mean Corpuscular HGB Conc 35.4 g/dl (31.0-35.0); Mean Corpuscular Hemoglobin 35.7 pg (27.0-33.0); Mean Corpuscular Volume 101.1 fL (80.0-98.0); Monocytes Absolute Auto 0.7 X10*3/uL (0.1-1.2); Monocytes Percent Auto 13.2 % (2-11); Neutrophils Absolute Auto 3.4 x10*3/uL (2.0-8.3); Neutrophils Percent Auto 60.1 % (45-73); Red Blood Count 2.77 X10*6/uL (4.20-5.50); Red Cell Distribution Width 16.8 % (11.0-16.0); White Blood Count 5.6 X10*3/uL (4.8-10.8)
[2023-05-29 07:15] LABS: Alanine Aminotransferase 29 U/L (0-31); Albumin Level 1.6 g/dL (3.5-5.0); Alkaline Phosphatase 389 U/L (39-117); Anion Gap 7 (12-20); Aspartate Amino Transferase 59 U/L (5-31); Bilirubin Total 3.4 mg/dL (0.0-1.0); Blood Urea Nitrogen 23 mg/dL (9-16); C Reactive Protein 2.69 mg/dL (< or = 0.50); Calcium 7.8 mg/dL (8.4-10.2); Carbon Dioxide 28 mmol/L (22-29); Chloride 102 mmol/L (96-108); Estimated Glomerular Filt Rate 13; Glucose Random 81 mg/dL (60-115); Sodium 134 mmol/L (135-145); Total Protein 4.9 g/dL (6.5-8.0)
[2023-05-29 07:30] LABS: Mean Platelet Volume 12.4 fL (9.4-12.3); Platelet Count 18 X10*3/uL (160-400)
[2023-05-29 07:56] LABS: Erythrocyte Sedimentation Rate 12 MM/HR (0-20)
== END 2023-05-29 03:51 | disposition home or self-care (01) ==
LOC: HO.MMNH2L 03:50
PROVIDERS: Visit Provider Family Medicine
DX: A41.9 Sepsis, unspecified organism (principal)
CPT/HCPCS: 36415; 80053; 85025; 85652; 86140

== ENCOUNTER 2023-06-04 06:26 | Outpatient (REF) | payer MEDICARE, MEDICAID, SELFPAY ==
[2023-06-04 06:12] LABS: MANUAL DIFF FLAG NO
[2023-06-04 07:22] LABS: Alanine Aminotransferase 25 U/L (0-31); Albumin Level 1.7 g/dL (3.5-5.0); Alkaline Phosphatase 368 U/L (39-117); Anion Gap 10 (12-20); Aspartate Amino Transferase 54 U/L (5-31); Bilirubin Total 3.9 mg/dL (0.0-1.0); Blood Urea Nitrogen 41 mg/dL (9-16); C Reactive Protein 2.93 mg/dL (< or = 0.50); Calcium 8.2 mg/dL (8.4-10.2); Carbon Dioxide 27 mmol/L (22-29); Chloride 101 mmol/L (96-108); Glucose Random 78 mg/dL (60-115); Potassium 3.4 mmol/L (3.3-5.1); Sodium 135 mmol/L (135-145); Total Protein 4.9 g/dL (6.5-8.0)
[2023-06-04 07:28] LABS: Basophils Percent Auto 0.5 % (0-2); Eosinophils Absolute Auto 0.1 X10*3/uL (0.0-0.4); Eosinophils Percent Auto 2.5 % (0-4); Hematocrit 28.2 % (37.0-47.0); Hemoglobin 9.8 g/dl (12.0-16.0); Imm Gran Abs Auto 0.02 X10*3/uL (0.00-0.03); Imm Gran Pct Auto 0.4 % (0.0-0.4); Lymphocytes Percent Auto 18.3 % (20-40); Mean Corpuscular HGB Conc 34.8 g/dl (31.0-35.0); Mean Corpuscular Hemoglobin 36.3 pg (27.0-33.0); Mean Corpuscular Volume 104.4 fL (80.0-98.0); Mean Platelet Volume 12.3 fL (9.4-12.3); Monocytes Absolute Auto 0.6 X10*3/uL (0.1-1.2); Monocytes Percent Auto 11.2 % (2-11); Neutrophils Absolute Auto 3.7 x10*3/uL (2.0-8.3); Neutrophils Percent Auto 67.1 % (45-73); Red Cell Distribution Width 16.6 % (11.0-16.0); White Blood Count 5.5 X10*3/uL (4.8-10.8)
[2023-06-04 07:29] LABS: Platelet Count 32 X10*3/uL (160-400)
[2023-06-04 08:13] LABS: Estimated Glomerular Filt Rate 8
[2023-06-04 08:16] LABS: Erythrocyte Sedimentation Rate 13 MM/HR (0-20)
== END 2023-06-04 06:27 | disposition home or self-care (01) ==
LOC: HO.MMNH2L 06:26
PROVIDERS: Visit Provider Family Medicine
DX: A41.9 Sepsis, unspecified organism (principal)
CPT/HCPCS: 36415; 80053; 85025; 85652; 86140

== ENCOUNTER 2023-06-11 07:27 | Outpatient (REF) | payer MEDICARE, MEDICAID, SELFPAY ==
[2023-06-11 06:08] LABS: MANUAL DIFF FLAG NO
[2023-06-11 07:01] LABS: Basophils Percent Auto 0.6 % (0-2); Eosinophils Absolute Auto 0.1 X10*3/uL (0.0-0.4); Eosinophils Percent Auto 1.6 % (0-4); Hematocrit 31.2 % (37.0-47.0); Hemoglobin 10.5 g/dl (12.0-16.0); Imm Gran Abs Auto 0.04 X10*3/uL (0.00-0.03); Imm Gran Pct Auto 0.6 % (0.0-0.4); Lymphocytes Absolute Auto 0.7 X10*3/uL (1.2-4.9); Lymphocytes Percent Auto 10.1 % (20-40); Mean Corpuscular HGB Conc 33.7 g/dl (31.0-35.0); Mean Corpuscular Hemoglobin 35.4 pg (27.0-33.0); Mean Corpuscular Volume 105.1 fL (80.0-98.0); Mean Platelet Volume 11.1 fL (9.4-12.3); Monocytes Absolute Auto 0.6 X10*3/uL (0.1-1.2); Monocytes Percent Auto 8.8 % (2-11); Neutrophils Absolute Auto 5.4 x10*3/uL (2.0-8.3); Neutrophils Percent Auto 78.3 % (45-73); Red Blood Count 2.97 X10*6/uL (4.20-5.50); Red Cell Distribution Width 16.5 % (11.0-16.0); White Blood Count 6.9 X10*3/uL (4.8-10.8)
[2023-06-11 07:02] LABS: Platelet Count 47 X10*3/uL (160-400)
[2023-06-11 07:29] LABS: Alanine Aminotransferase 31 U/L (0-31); Albumin Level 1.9 g/dL (3.5-5.0); Alkaline Phosphatase 470 U/L (39-117); Anion Gap 14 (12-20); Aspartate Amino Transferase 67 U/L (5-31); Bilirubin Total 3.9 mg/dL (0.0-1.0); Blood Urea Nitrogen 42 mg/dL (9-16); C Reactive Protein 4.13 mg/dL (< or = 0.50); Calcium 8.6 mg/dL (8.4-10.2); Carbon Dioxide 26 mmol/L (22-29); Chloride 102 mmol/L (96-108); Estimated Glomerular Filt Rate 8; Glucose Random 94 mg/dL (60-115); Sodium 138 mmol/L (135-145); Total Protein 5.7 g/dL (6.5-8.0)
[2023-06-11 07:36] LABS: Erythrocyte Sedimentation Rate 18 MM/HR (0-20)
== END 2023-06-11 07:28 | disposition home or self-care (01) ==
LOC: HO.MMNH2L 07:27
PROVIDERS: Visit Provider Family Medicine
DX: A41.9 Sepsis, unspecified organism (principal)
CPT/HCPCS: 36415; 80053; 85025; 85652; 86140

== ENCOUNTER 2023-06-20 05:43 | Outpatient (REF) | payer MEDICARE, MEDICAID, SELFPAY ==
[2023-06-20 06:04] LABS: Eosinophils Absolute Auto 0.1 X10*3/uL (0.0-0.4); Eosinophils Percent Auto 0.6 % (0-4); Hemoglobin 10.7 g/dl (12.0-16.0); PLT CLUMP 1; SCAN SMEAR FLAG 1
[2023-06-20 06:06] LABS: Basophils Percent Auto 0.2 % (0-2); Hematocrit 30.9 % (37.0-47.0); Imm Gran Pct Auto 0.7 % (0.0-0.4); Lymphocytes Percent Auto 7.1 % (20-40); Mean Corpuscular HGB Conc 34.6 g/dl (31.0-35.0); Mean Corpuscular Hemoglobin 35.5 pg (27.0-33.0); Mean Corpuscular Volume 102.7 fL (80.0-98.0); Mean Platelet Volume 10.1 fL (9.4-12.3); Monocytes Absolute Auto 1.1 X10*3/uL (0.1-1.2); Monocytes Percent Auto 7.5 % (2-11); Neutrophils Percent Auto 83.9 % (45-73); Red Blood Count 3.01 X10*6/uL (4.20-5.50); Red Cell Distribution Width 16.1 % (11.0-16.0)
[2023-06-20 06:10] LABS: Platelet Count 66 X10*3/uL (160-400); White Blood Count 14.3 X10*3/uL (4.8-10.8)
[2023-06-20 06:11] LABS: MANUAL DIFF FLAG NO
[2023-06-20 06:42] LABS: Alanine Aminotransferase 40 U/L (0-31); Albumin Level 2.1 g/dL (3.5-5.0); Alkaline Phosphatase 525 U/L (39-117); Anion Gap 14 (12-20); Aspartate Amino Transferase 113 U/L (5-31); Bilirubin Total 4.3 mg/dL (0.0-1.0); Blood Urea Nitrogen 38 mg/dL (9-16); Calcium 8.5 mg/dL (8.4-10.2); Carbon Dioxide 25 mmol/L (22-29); Chloride 100 mmol/L (96-108); Estimated Glomerular Filt Rate 10; Glucose Random 92 mg/dL (60-115); Sodium 135 mmol/L (135-145); Total Protein 6.1 g/dL (6.5-8.0)
== END 2023-06-20 05:44 | disposition home or self-care (01) ==
LOC: HO.MMNH2L 05:43
PROVIDERS: Visit Provider Family Medicine
DX: N18.6 End stage renal disease (principal)
CPT/HCPCS: 36415; 80053; 85025

== ENCOUNTER 2023-06-25 06:27 | Outpatient (REF) | payer MEDICARE, MEDICAID, SELFPAY ==
[2023-06-25 06:03] LABS: MANUAL DIFF FLAG NO
[2023-06-25 06:44] LABS: Basophils Percent Auto 0.2 % (0-2); Eosinophils Absolute Auto 0.6 X10*3/uL (0.0-0.4); Eosinophils Percent Auto 4.2 % (0-4); Hematocrit 27.7 % (37.0-47.0); Hemoglobin 9.5 g/dl (12.0-16.0); Imm Gran Abs Auto 0.13 X10*3/uL (0.00-0.03); Lymphocytes Absolute Auto 0.9 X10*3/uL (1.2-4.9); Lymphocytes Percent Auto 6.9 % (20-40); Mean Corpuscular HGB Conc 34.3 g/dl (31.0-35.0); Mean Corpuscular Hemoglobin 36.1 pg (27.0-33.0); Mean Corpuscular Volume 105.3 fL (80.0-98.0); Mean Platelet Volume 11.2 fL (9.4-12.3); Monocytes Absolute Auto 0.8 X10*3/uL (0.1-1.2); Monocytes Percent Auto 5.6 % (2-11); Neutrophils Absolute Auto 11.2 x10*3/uL (2.0-8.3); Neutrophils Percent Auto 82.1 % (45-73); Red Blood Count 2.63 X10*6/uL (4.20-5.50); White Blood Count 13.7 X10*3/uL (4.8-10.8)
[2023-06-25 06:45] LABS: Platelet Count 51 X10*3/uL (160-400)
[2023-06-25 07:10] LABS: Alanine Aminotransferase 44 U/L (0-31); Albumin Level 1.7 g/dL (3.5-5.0); Alkaline Phosphatase 563 U/L (39-117); Anion Gap 15 (12-20); Aspartate Amino Transferase 94 U/L (5-31); Blood Urea Nitrogen 75 mg/dL (9-16); C Reactive Protein 10.86 mg/dL (< or = 0.50); Calcium 8.3 mg/dL (8.4-10.2); Carbon Dioxide 22 mmol/L (22-29); Chloride 102 mmol/L (96-108); Estimated Glomerular Filt Rate 6; Glucose Random 92 mg/dL (60-115); Potassium 3.4 mmol/L (3.3-5.1); Sodium 136 mmol/L (135-145); Total Protein 5.1 g/dL (6.5-8.0)
[2023-06-25 08:13] LABS: Erythrocyte Sedimentation Rate 28 MM/HR (0-20)
== END 2023-06-25 06:28 | disposition home or self-care (01) ==
LOC: HO.MMNH2L 06:27
PROVIDERS: Visit Provider Family Medicine
DX: A41.9 Sepsis, unspecified organism (principal)
CPT/HCPCS: 36415; 80053; 85025; 85652; 86140